=== PATIENT | female | born 2005 | race Caucasian/White ===

== ENCOUNTER 2025-07-28 19:34 | Emergency (ER) | payer MEDICARE, MEDICAID, SELFPAY ==
[2025-07-28 19:37] VITALS: BP 128/71; PULSE 79; RESP 18; TEMP 36.6; O2SAT 100
--- NOTE | 2025-07-28 22:33 | ED_ITS ---
HPI - General Adult General Chief complaint: Shortness of Breath/Dyspnea Stated complaint: trouble breathing Time Seen by Provider: 07/28/25 22:29 History of Present Illness HPI narrative: patient is 19-year-old female presents emergency department chief complaint needs a breathing. Patient is a inpatient over at the psychiatric facility chest not across the street patient was recently admitted there and normally uses a nebulizer her mother brought her equipment and brought her vials but did not bring the label for the facility was unable to use her on treatment for vials and reports that she was sent over to our facility to receive a breathing treatment Related Data Allergies Allergy/AdvReac Type Severity Reaction Status Date / Time No Known Allergies Allergy Verified 07/28/25 22:39 Review of Systems Review of Systems: A 10 system review of systems was completed on the patient and is negative except for what is stated in the HPI. Nursing and ancillary documentation was reviewed. Exam Narrative: GENERAL: Well-appearing, well-nourished, and in no acute distress. HEAD: Normocephalic, atraumatic. EYES: PERRLA and EOMI. ENT: Nares clear, no rhinorrhea or epistaxis. Mucous membranes moist. NECK: Supple. CHEST: Clear to auscultation. No respiratory distress. HEART: Regular rate and rhythm. No murmur heard. Normal peripheral pulses. ABDOMEN: Soft, nontender, nondistended, normal active bowel sounds. EXTREMITIES: Normal range of motion. No edema. SKIN: Warm, dry, no rash. NEURO: No focal deficits. Alert and oriented x3. PSYCH: Normal mood and affect. Course Vital Signs Vital signs: Vital Signs Temperature 36.6 C 07/28/25 19:37 Pulse Rate 79 07/28/25 19:37 Respiratory Rate 18 07/28/25 19:37 Blood Pressure 128/71 07/28/25 19:37 Pulse Oximetry 100 07/28/25 19:37 Oxygen Delivery Room Air 07/28/25 19:37 Temperature 36.6 C 07/28/25 19:37 Pulse Rate 79 07/28/25 19:37 Respiratory Rate 18 07/28/25 19:37 Blood Pressure 128/71 07/28/25 19:37 Pulse Oximetry 100 07/28/25 19:37 Oxygen Delivery Room Air 07/28/25 19:37 [facility] MDM Narrative Medical decision making narrative: the patient received DuoNeb in the emergency department and will be discharged back to the facility Differential Diagnosis Differential Diagnosis: Asthma, bronchospasm Discharge Plan Discharge Clinical Impression: Acute bronchospasm Patient Disposition: NH Alf/Asst Living Condition: Stable Instructions: Antibiotic Form, Asthma (ED) Patient Language: Frisian Prescriptions: New albuterol sulfate 1.25 mg/3 mL solution for nebulization 1.25 mg inhalation Q4H PRN (Reason: shortness of breath or wheezing) Qty: 90 0RF Follow-up/Referrals: PHYSICIAN NOT ON STAFF,NONSTAFF [Primary Care Provider] Time of Disposition: 22:45
[2025-07-28] MEDS: IPRATROPIUM 0.5 MG/ALBUTEROL SULFATE 2.5 MG (BASE) AMPUL.NEB 3 ML INHALATION (22:47)
[2025-07-28 22:50] VITALS: PULSE 67; RESP 18
[2025-07-28 22:56] VITALS: PULSE 70; RESP 18
--- OUTSIDE RECORDS SUMMARY | 2025-07-28 22:57 | XMS_ITS | Clinical Summary ---
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 Name Role Phone Provider, None Primary Care Provider Unavailabl e Allergies Active Allergy Reactions Criticality Noted Date Comments Diphenhydramine Anaphylaxis,Unknown High 11/01/2021 Stated by patient she is not sure when the reaction was Penicillins Hives 12/31/2021 Medications albuterol 108 (90 Base) MCG/ACT Aerosol Solution SHAKE WELL AND INHALE 2 PUFFS BY MOUTH DIRECTED NEEDED FOR WHEEZING AND SHORTNESS OF BREATH Active Dexmethylphenidate HCl 5 MG TabletIndications: Attention-deficit hyperactivity disorder, combined type TAKE ONE Tablet BY MOUTH AT EVERY DAY AT NOON 30 Tablet 4 Active Focalin XR 30 MG CAPSULE SR 24 HRIndications:Atte ntion-deficit hyperactivity disorder, combined type TAKE ONE CAPSULE BY MOUTH IN THE MORNING 30 Capsule 4 Active FLUoxetine (PROzac) 20 MG CapsuleIndications :Mood disorder Take 1 Capsule by mouth daily. 30 Capsule 3 5 Active lithium 300 MG Capsule Take 1 Capsule by mouth every morning. 90 Capsule 5 Active [place] Carbonate 600 MG Capsule Take 1 Capsule by mouth nightly. 90 Capsule 5 Active zolpidem (Ambien) 5 MG TabletIndications: Insomnia, unspecified type Take 1.5 Tablets by mouth nightly as needed for Sleep. 45 Tablet 3 5 Active cloNIDine (CATAPRES) 0.2 MG Tablet Take 1 Tablet by mouth nightly. 30 Tablet 3 5 Active Active Problems Problem Noted Date Diagnosed Date Other [facility] drug therapy Insomnia 08/26/2023 Borderline personality disorder 04/22/2023 Attention deficit hyperactivity disorder, combin ed type 03/11/2023 Mood disorder 03/11/2023 Social History Tobacco Use Types Packs/Day Years Used Date Smoking Tobacco: Never Smokeless Tobacco: Never Tobacco Cessation:Counseling Given: Not Answered Alcohol Use Standard Drinks/Week Comments Never 0 (1 standard drink = 0.6 oz pur e alcohol) [facility] [employer] Answer Date Recorded In the past 12 months has [employer], gas, oil, or water [employer] threatened to shut off services in your home? No 10/03/2024 Social Connection and Isolation Panel Answer Date Recorded In a typical week, how many times do you talk on the phone with family, friends, or neighbors? More than three times a week 10/03/2024 How often do you get togethe r with friends or relatives? Once a week 10/03/2024 How often do you attend [facility] or [facility] services? 1 to 4 times per year 10/03/2024 Do you belong to any clubs o r organizations such as evangelical groups, unions, fraternal or athletic groups, or school groups? No 10/03/2024 How often do you attend meet ings of the clubs or organizations you belong to? Never 10/03/2024 Are you , , di vorced, , never , or living with a partner? Never 10/03/2024 AUDIT-C Answer Date Recorded Q1: How often do you have a drink containing alcohol? Never 10/03/2024 Q2: How many drinks containi ng alcohol do you have on a typical day when you are drinking? Patient does not drink Q3: How often do you have si x or more drinks on one occasion? Never 10/03/2024 Overall Financial Resource Strain (CARDIA) Answe r Date Recorded How hard is it for you to pa y for the very basics like food, housing, medical care, and heating? Not hard at all 10/03/2024 PHQ-2 Answer Date Recorded Total Score - Questions 1-9 10 06/18 [facility] - Occupational Stress Questionnaire Answer Date Recorded Do you feel stress - tense, restless, nervous, or anxious, or unable to sleep at night because your mind is troubled all the time - these days? To some extent 10/03/2024 Exercise Vital Sign Answer Date Recorde d On average, how many days pe r week do you engage in moderate to strenuous exercise (like a brisk walk)? 7 days 10/03/2024 On average, how many minutes do you engage in exercise at this level? 40 min 10/03/2024 Hunger Vital Sign Answer Date Recorded Within the past 12 months, y ou worried that your food would run out before you got the money to buy more. Never true 10/03/19 25 Within the past 12 months, t he food you bought just didn't last and you didn't have money to get more. Never true 10/03/2024 PRAPARE - Transportation Answer Date Re corded In the past 12 months, has l ack of transportation kept you from medical appointments or from getting medications? No 09/18 In the past 12 months, has l ack of transportation kept you from meetings, work, or from getting things needed for daily living? No 10/03/2024 Housing Stability Vital Sign Answer Bradley e Recorded In the last 12 months, was t here a time when you were not able to pay the mortgage or rent on time? No 10/03/2024 In the past 12 months, how m any times have you moved where you were living? 0 10/03/2024 At any time in the past 12 m [facility], were you homeless or living in a care home (including now)? 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 DESIGNER Pulse 98 10/07/2024 9:45 AM LITHOGRAPH DESIGNER Temperature 36.7 C (98.1 F) 01/02/2022 5:51 PM CDT Respiratory Rate 18 10/07/2024 9:45 AM LITHOGRAPH DESIGNER Oxygen Saturation 95% 07/01/2024 4:19 PM LITHOGRAPH DESIGNER Inhaled Oxygen Concentration - - Weight 60.3 kg (133 lb) 10/07/2024 9:45 AM LITHOGRAPH DESIGNER Height 167.6 cm (5' 6) 10/07/2024 9:45 AM LITHOGRAPH DESIGNER Body Mass Index 21.47 10/07/2024 9:45 AM LITHOGRAPH DESIGNER Plan of Treatment Health Maintenance Due Date Last Done Comments Hepatitis C Virus (HCV) Screening 2003 Meningococcal B Immunization (2 of 2 - Bexsero SCDM 2-dose series) 06/22/2021 12/20/2020 Pap Smear 11/28/2024 Influenza Immunization (#1) 2025 110 12/2019, 05/21/2018, 10/24/2017, Additional history exists SARS-COV-2 Immunization ( season) 2025 11/01/2021, 06/18/2021, 05/18/2021, Additional history exists Respiratory Syncytial Virus (RSV) Immunization (Adult) (1 - 1-dose 75+ series) 11/28/2078 Hepatitis B Immunization Completed 004, 06/14/2004, 04/05/2004, Additional history exists Pneumococcal Immunization Combined Aged Out 2004, 2004, 06/14/2004, Additional history exists No longer eligible based on patient's age to complete this topic Varicella Immunization Completed 8, 01/21/2008, 06/24/2005 TdaP Immunization Completed 03/13/2015 Human Papillomavirus (HPV) Immunization Completed 08/03/2018, 04/11/2015, 03/13/2015, Additional history exists Meningococcal Immunization (ACWY) Completed 06/22/2020, 03/13/2015 Rotavirus Immunization Aged Out No lo nger eligible based on patient's age to complete this topic Insurance MEDICAID [employer] MEDICAID [employer] Care Teams Blasting Coal Miner Relationship Specialty Start Date End Date Provider, None [place] PCP - General 12/31/21
--- OUTSIDE RECORDS SUMMARY | 2025-07-28 22:57 | XMS_ITS | Encounter Summary ---
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 [employer] Name Role Phone Provider, None Primary Care Provider Unavailabl e Reason for Visit * Reason Comments Medication Refill Encounter Details Date Type Department Care Team (Late st Contact Info) Description 05/16/2024 Refill [facility] [address] [place] [phone] Neda Guerra, NURSE CARE MANAGER, WATER TENDER [address] [place] [phone] (Work) Medication Refill Social History Tobacco Use Types Packs/Day Years Used Date Smoking Tobacco: Never Assessed Comments Unknown Sex and Gender Information Value Date Recorded Sex Assigned at Female 11/25/2024 9:17 AM CDT Legal Sex Female 3:40 PM CDT Gender Identity Female 03/02/2024 12:09 AM CDT Sexual Orientation Bisexual 11/25/2024 9: 17 AM CDT documented as of this encounter Plan of Treatment Not on file documented as of this encounter Visit Diagnoses Diagnosis Mood disorder- Primary Unspecified episodic mood disorder Bipolar disorder, unspecified documented in this encounter Care Teams Opener Verifier [employer] Relationship Specialty Start Date End Date Provider, None [place] PCP - General 12/31/21 documented as of this encounter
--- OUTSIDE RECORDS SUMMARY | 2025-07-28 22:58 | XMS_ITS | Clinical Summary ---
Author Organization [facility] Address [address] [place] [id number] Care Team Providers Care Gravity Meter Observer Name Role Phone Yesi Delvalle PA-C Primary Care Provider [phone] Allergies Active Allergy Reactions Criticality Noted Date Comments Diphenhydramine Anaphylaxis,Other/Un known (See Comments) High 05/09/2022 Penicillins Hives,Other/Unknown (See Comments) 12/31/2021 Medications * This document contains information received from the source organization and may not represent a complete record from that organization. dexmethylpheni date (FOCALIN XR) 30 MG ER capsule Nightly 06/21/20 25 Active FLUoxetine (PROZAC) 40 MG capsule 1 capsule (40 mg) Nightly 07/13/20 25 Active lamoTRIgine (LAMICTAL ODT) 25 MG TBDP Take 1 tablet (25 mg) by mouth every morning Active QUEtiapine (SEROQUEL) 100 MG tablet Take 1.5 tablets (150 mg) by mouth daily Active cloNIDine (CATAPRES) 0.3 MG tablet Take 1 tablet (0.3 mg) by mouth daily Active cloNIDine (CATAPRES) 0.3 MG tablet Take 1 tablet (0.3 mg) by mouth at bedtime 06/07/20 23 025 Discontinued dexmethylpheni date (FOCALIN XR) 30 MG ER capsule Take 1 capsule (30 mg) by mouth 025 Discontinued dexmethylpheni date (FOCALIN) 5 MG tablet Take 1 tablet (5 mg) by mouth daily in the afternoon 05/21/20 025 Discontinued FLUoxetine (PROZAC) 20 MG capsule Take 1 capsule (20 mg) by mouth daily 06/07/20 025 Discontinued lithium 300 MG capsule Take 1 capsule (300 mg) by mouth every morning 025 Discontinued lithium 600 MG capsule Take 1 capsule (600 mg) by mouth at bedtime 06/07/20 025 Discontinued zolpidem (AMBIEN) 5 MG tablet Take 1.5 tablets (7.5 mg) by mouth at bedtime 03/23/20 025 Discontinued albuterol (PROVENTIL) (2.5 MG/3ML) 0.083% nebulizer solution Inhale 1 vial (2.5 mg) by mouth 4 times daily as needed 07/01/20 025 Discontinued(Er ror) azelastine (ASTELIN) 0.1 % nasal spray 1 spray by Nasal route 06/02/20 025 Discontinued(Er ror) LORazepam (ATIVAN) 1 MG tablet 0.5-1 tablet prior to procedure Orally 03/01/20 025 Discontinued(Er ror) BALZIVA 0.4-35 MG-MCG per tablet Take 1 tablet by mouth daily 03/15/20 025 Discontinued(Er ror) lithium 300 MG capsule Take 1 capsule (300 mg) by mouth every morning for 1 day 07/04/20 025 lithium 600 MG capsule Take 1 capsule (600 mg) by mouth at bedtime for 1 day 07/04/20 025 DAYVIGO 5 MG TABS tablet Nightly 07/13/20 25 025 Discontinued(Er ror) lithium 300 MG tablet Take 1 tablet (300 mg) by mouth 2 times daily 07/08/20 025 Discontinued(Er ror) Active Problems Problem Noted Date Diagnosed Date Acetaminophen toxicity, inte ntional self-harm, initial encounter 07/21/2025 Bipolar disorder in remission 06/07/2025 Mood disorder 05/16/2025 Borderline personality disorder 05/16/2025 Insomnia 08/26/2023 Abnormal serum thyroid stimulating hormone (TSH) level 09/29/2022 Leukocytosis 09/29/2022 Attention deficit hyperactiv ity disorder (ADHD), combined type 05/12/2019 Resolved Problems Problem Noted Date Diagnosed Date Resolved Date Suicidal deliberate poisonin g, initial encounter 07/03/2025 07/04/2025 Severe recurrent major depre ssion without psychotic features 05/16/2025 07/04/2025 Encounters * This document contains information received from the source organization and may not represent a complete record from that organization. Date Type Department Care Team Description 07/21/2025 4:42 PM DIP PAINTER - 07/23/2025 10:05 PM DIP PAINTER Hospital Encounter [facility]ensive [facility] [address] [place] [phone] Luis Manuel Shankar MD Hipskind, Timothy, MD Toxic effect of acetaminophen, intentional self-harm, initial encounter (HCC) (Primary Dx); Suicide attempt (HCC); Hypomagnesemia; Hypokalemia; Lactic acidosis Discharge Disposition: [facility] Hospital 07/14/2025 4:17 PM DIP PAINTER - 07/15/2025 1:41 AM DIP PAINTER Emergency [facility] Emergency Department [address] [place] [phone] Jessi Restrepo MD Suicidal ideation (Primary Dx) Discharge Disposition: [facility] Hospital 07/13/2025 5:45 PM DIP PAINTER Office Visit [address] [phone] Mylene Singh APRN Acute viral pharyngitis (Primary Dx); Sore throat 07/09/2025 7:21 PM DIP PAINTER - 07/10/2025 12:29 AM [facility] Emergency [facility] Emergency Department [address] [place] [phone] Casimiro Arzola MD Back pain, unspecified back location, unspecified back pain laterality, unspecified chronicity (Primary Dx) Discharge Disposition: Home 07/03/2025 12:26 PM DIP PAINTER - 07/04/2025 11:05 AM DIP PAINTER Hospital Encounter [facility] [address] [place] [phone] Jessi Restrepo MD Riley, Patrick L, MD Suicidal deliberate poisoning, initial encounter (HCC) (Primary Dx); Generalized anxiety disorder Discharge Disposition: Acute [facility] 06/22/2025 5:13 PM DIP PAINTER - 06/23/2025 2:06 AM DIP PAINTER Emergency [facility] Emergency [facility] [address] [place] [phone] Jake Ragland DO Suicidal ideation (Primary Dx); Depression, unspecified depression type Discharge Disposition: [facility] Hospital 06/07/2025 5:45 PM CDT Office Visit [facility] [place] [phone] Bronchitis (Primary Dx) 05/24/2025 3:46 PM CDT - 05/24/2025 11:22 PM CDT Emergency [facility] Emergency Department [address] [place] [phone] Philipp Bender MD Suicidal ideation (Primary Dx) Discharge Disposition: [facility] 05/23/2025 8:39 PM CDT - 05/23/2025 11:03 PM CDT Emergency [facility] Emergency Department [address] [place] [phone] Feliciano Spence MD Impairing emotional outbursts (Primary Dx) Discharge Disposition: Home 05/15/2025 9:24 PM CDT - 05/16/2025 9:41 AM CDT [facility] [address] [place] [phone] Pema Cardoza DO Mooth, David Carroll, MD Suicide attempt by acetaminophen overdose, initial encounter (HCC) (Primary Dx); Bipolar affective disorder, remission status unspecified (HCC) Discharge Disposition: [facility] Hospital from Last 3 Months Immunizations Immunization Administration Dates Next Due DTP Immunization, IM 06/14/2004,04/05/2004,01/25 DTaP 01/21/2008,06/24/2005 DTaP/Hep B/IPV 06/14/2004,04/05/2004,01/26/2004 HPV, 9-Valent 08/03/2018,04/11/2015 HPV, Quadrivalent 03/13/2015 Hepatitis A, Ped/Adol 2 dose 12/20/2020,06/22/20 Hepatitis B 06/14/2004,04/05/2004,01/26/2004 HiB 06/14/2004,04/05/2004,01/26/2004 Hpv, Unspecified Formulation 03/11/2015 IPV 01/21/2008 Influenza (nasal virus) 05/29/2011,06/06/2010 Influenza Quadrivalent, Pres ervative Free 06/22/2020,05/21/2018 Influenza, Quadrivalent 05/29/2011,06/06/2010, Influenza, Quadrivalent (CCIIV4) 06/14/2004 Influenza, Seasonal Vaccine 10/24/2017,1 ,06/06/2010,06/14 MMR 01/21/2008,2004 MMRV 01/21/2008 Meningococcal B, Omv 12/20/2020 Meningococcal Conjugate MCV4O (Menveo) 5 Meningococcal Conjugate MCV4 P (Menactra) 06/22/2020 Pneumococcal Conjugate PCV7 2004,1 ,04/05/2004,01/25 Pneumococcal Polysaccharide PPV23 2004,06/14/2004,04/05/2004,01/25 Polio, Unspecified Formulation 06/14/2004,2003,01/26/2004 Tdap 03/13/2015 Varicella (Chickenpox) 01/21/2008,06/24/2005 Family History Medical History Relation Name Comments Mental Illness Father Substance Abuse Father Mental Illness Mother Substance Abuse Mother Relation Name Status Comments Father Mother Social History Tobacco Use Types Packs/Day Years Used Date Smoking Tobacco: Never Smokeless Tobacco: Never Tobacco Cessation:Counseling Given: Not Answered Alcohol Use Standard Drinks/Week Comments Never 0 (1 standard drink = 0.6 oz pur e alcohol) PHQ-2 Answer Date Recorded PHQ-2 Score 0 07/13/2025 Housing Stability Vital Sign Answer Bradley e Recorded In the last 12 months, was t here a time when you were not able to pay the mortgage or rent on time? Patient declined 06/03/20 24 [address] of Places Lived in the Last Year Not on f ile 06/03/2024 Unstable Housing in the Last Year Not on file 06/03/2024 Humiliation, Afraid, Rape, and Kick questionnair e Answer Date Recorded Within the last year, have y ou been afraid of your partner or ex-partner? No 07/21/2025 Within the last year, have y ou been humiliated or emotionally abused in other ways by your partner or ex-partner? No Within the last year, have y ou been kicked, hit, slapped, or otherwise physically hurt by your partner or ex-partner? No 07/21/2025 Within the last year, have y ou been raped or forced to have any kind of sexual activity by your partner or ex-partner? No 07/21/2025 Hunger Vital Sign Answer Date Recorded Within the past 12 months, y ou worried that your food would run out before you got the money to buy more. Never true 07/22/20 25 Within the past 12 months, t he food you bought just didn't last and you didn't have money to get more. Never true 07/22/2025 PRAPARE - Transportation Answer Date Re corded In the past 12 months, has l ack of transportation kept you from medical appointments or from getting medications? No 12/2024 In the past 12 months, has l ack of transportation kept you from meetings, work, or from getting things needed for daily living? No 07/22/2025 Housing Stability Vital Sign Answer Bradley e Recorded In the last 12 months, was t here a time when you were not able to pay the mortgage or rent on time? No 07/22/2025 In the past 12 months, how m any times have you moved where you were living? 1 07/22/2025 At any time in the past 12 m [place], were you homeless or living in a half-way (including now)? No 07/22/2025 [facility] Utilities Answer Date Recorded In the past 12 months has th e electric, gas, oil, or water company threatened to shut off services in your home? No 07/22/2025 Alcohol Use Answer Date Recorded Frequency of Alcohol Consumption Not on file 05/15/2025 Average Number of Drinks Not on file 025 Frequency of Binge Drinking Not on file 04/19 Alcohol Use Status Never 05/15/2025 Average alcohol consumption Not on file 04/19 Comments No Sex and Gender Information Value Date Recorded Sex Assigned at Female 12/28/2024 8:34 AM CDT Legal Sex Female 11:12 PM CDT Gender Identity Female 12/28/2024 8:34 AM CDT Sexual Orientation Bisexual 12/28/2024 8: 34 AM CDT Last Filed Vital Signs Vital Sign Reading Time Taken Comments Blood Pressure 135/82 07/23/2025 6:00 PM DIP PAINTER Pulse 105 07/23/2025 6:00 PM DIP PAINTER Temperature 36.7 C (98.1 F) 07/23/2025 6:00 PM DIP PAINTER Respiratory Rate 16 07/23/2025 6:00 PM DIP PAINTER Oxygen Saturation 97% 07/23/2025 6:00 PM DIP PAINTER Inhaled Oxygen Concentration - - Weight 67.4 kg (148 lb 9.4 oz) 07/22/2025 1:01 A M DIP PAINTER Height 167.6 cm (5' 6) 07/22/2025 1:01 AM DIP PAINTER Body Mass Index 23.98 07/22/2025 1:01 AM DIP PAINTER Plan of Treatment Health Maintenance Due Date Last Done Comments HIV Screening 2003 Hepatitis C Screening ages 18 to 79 once 2003 Medicare Annual Wellness (AWV) 2003 Meningococcal B Vaccine (2 of 2 - Bexsero SCDM 2-dose series) 06/22/2021 12/20/2020 CERVICAL CANCER SCREENING 11/28/2024 ADULT TETANUS 03/13/2025 03/13/2015 DTaP/Tdap/Td Vaccines (7 - Td or Tdap) 03/13/2025 03/13/2015, 01/21/2008, 06/24/2005, Additional history exists Influenza Vaccine 03/18/2025 06/22/2020, , 10/24/2017, Additional history exists COVID-19 Immunization ( season) 2025 11/01/2021, 02/15/2021, 01/25/2021 Zoster Vaccine (Recombinant Vaccine) (1 of 2) 11/28/2053 HEPATITIS B VACCINES Completed 06/14/2004, 06/14/2004, 04/05/2004, Additional history exists HIB VACCINES Aged Out 06/14/2004, 03/18, 01/26/2004 No longer eligible based on patient's age to complete this topic Pneumococcal Vaccine: Peds to 50 & At-Risk Patients Aged Out 2004, 2004, 06/14/2004, Additional history exists No longer eligible based on patient's age to complete this topic IPV VACCINES Completed 01/21/2008, 05/19, 04/05/2004, Additional history exists MMR VACCINES Completed 01/21/2008, 12/2007, 2004 Varicella Vaccine Completed 01/21/2008, , 06/24/2005 HPV VACCINES Completed 08/03/2018, 03/19, 03/13/2015 MENINGOCOCCAL VACCINE Completed 06/22/2020, 015 HEPATITIS A VACCINES Completed 12/20/2020, 06/22/20 20 ROTAVIRUS VACCINES Aged Out No longer eligible based on patient's age to complete this topic Procedures Procedure Name Priority Date/Time Associated Diagnosis Comments BASIC METABOLIC PANEL (CHEM8) Timed 07/23/2025 11:31 AM DIP PAINTER COMPREHENSIVE METABOLIC PANEL Routine 07/23/2025 3:44 AM DIP PAINTER CBC W AUTO DIFF Routine 07/23/2025 3:44 AM DIP PAINTER ACETAMINOPHEN LEVEL Timed 07/22/2025 8 :58 PM DIP PAINTER PROTIME (PROTHROMBIN TIME) Timed 07/22/2025 8:58 PM DIP PAINTER APTT Timed 07/22/2025 8:58 PM DIP PAINTER COMPREHENSIVE METABOLIC PANEL Timed 07/22/2025 8:58 PM DIP PAINTER T3 FREE Routine 07/22/2025 2:28 PM DIP PAINTER TSH THIRD GENERATION Routine 07/22/2025 2:28 PM DIP PAINTER ACETAMINOPHEN LEVEL Timed 07/22/2025 4 :08 AM DIP PAINTER MAGNESIUM Routine 07/22/2025 4:08 AM DIP PAINTER HEPATIC (LIVER) FUNCTION PANEL Routine 07/22/2025 4:08 AM DIP PAINTER COMPREHENSIVE METABOLIC PANEL Routine 07/22/2025 4:08 AM DIP PAINTER CBC W AUTO DIFF Routine 07/22/2025 4:08 AM DIP PAINTER LACTIC ACID, SERUM STAT 07/22/2025 12 :08 AM DIP PAINTER LACTIC ACID, SERUM STAT 07/21/2025 9: 20 PM DIP PAINTER SALICYLATE LEVEL STAT 07/21/2025 8:34 PM DIP PAINTER ACETAMINOPHEN LEVEL STAT 07/21/2025 8 :34 PM DIP PAINTER COMPREHENSIVE METABOLIC PANEL STAT 07/21/2025 8:34 PM DIP PAINTER EKG STAT 07/21/2025 8:18 PM DIP PAINTER BLOOD GAS VENOUS STAT 07/21/2025 6:49 PM DIP PAINTER INFLUENZA A/B, RSV, COVID BY PCR STAT 07/21/2025 5:24 PM DIP PAINTER DRUG SCREEN MEDICAL STAT 07/21/2025 5 :21 PM DIP PAINTER URINALYSIS WITH REFLEX TO CULTURE, IF INDICATED STAT 07/21/2025 5:21 PM DIP PAINTER PATH REVIEW, SMEAR Routine 07/21/2025 4: 55 PM DIP PAINTER LACTIC ACID, SERUM STAT 07/21/2025 4: 55 PM DIP PAINTER HCG QUANTITATIVE STAT 07/21/2025 4:55 PM DIP PAINTER APTT STAT 07/21/2025 4:55 PM DIP PAINTER PROTIME (PROTHROMBIN TIME) STAT 07/21/2025 4:55 PM DIP PAINTER MAGNESIUM STAT 07/21/2025 4:55 PM DIP PAINTER SALICYLATE LEVEL STAT 07/21/2025 4:55 PM DIP PAINTER ALCOHOL SERUM MEDICAL STAT 07/21/2025 4:55 PM DIP PAINTER ACETAMINOPHEN LEVEL STAT 07/21/2025 4 :55 PM DIP PAINTER TSH THIRD GENERATION STAT 07/21/2025 4:55 PM DIP PAINTER T4 FREE STAT 07/21/2025 4:55 PM DIP PAINTER COMPREHENSIVE METABOLIC PANEL STAT 07/21/2025 4:55 PM DIP PAINTER CBC W AUTO DIFF STAT 07/21/2025 4:55 PM DIP PAINTER EKG STAT 07/21/2025 4:44 PM DIP PAINTER POCT URINE STAT 07/14/2025 4:57 PM DIP PAINTER URINALYSIS WITH REFLEX TO CULTURE, IF INDICATED STAT 07/14/2025 4:57 PM DIP PAINTER DRUG SCREEN MEDICAL STAT 07/14/2025 4 :57 PM DIP PAINTER INFLUENZA A/B, RSV, COVID BY PCR STAT 07/14/2025 4:57 PM DIP PAINTER T4 FREE STAT 07/14/2025 4:39 PM DIP PAINTER SALICYLATE LEVEL STAT 07/14/2025 4:39 PM DIP PAINTER ACETAMINOPHEN LEVEL STAT 07/14/2025 4 :39 PM DIP PAINTER ALCOHOL SERUM MEDICAL STAT 07/14/2025 4:39 PM DIP PAINTER TSH THIRD GENERATION STAT 07/14/2025 4:39 PM DIP PAINTER COMPREHENSIVE METABOLIC PANEL STAT 07/14/2025 4:39 PM DIP PAINTER CBC W AUTO DIFF STAT 07/14/2025 4:39 PM DIP PAINTER POCT INFLUENZA A/B Routine 07/13/2025 5: 59 PM DIP PAINTER Sore throat POCT COVID ANTIGEN HOME TEST (FLOWFLEX) Routine 07/13/2025 5:52 PM DIP PAINTER Sore throat POCT RAPID STREP A Routine 07/13/2025 5: 52 PM DIP PAINTER Sore throat CT ABDOMEN PELVIS W CONTRAST STAT 07/09/2025 9:21 PM DIP PAINTER POCT URINE STAT 07/09/2025 9:03 PM DIP PAINTER URINALYSIS WITH REFLEX TO CULTURE, IF INDICATED STAT 07/09/2025 8:22 PM DIP PAINTER COMPREHENSIVE METABOLIC PANEL STAT 07/09/2025 8:21 PM DIP PAINTER CBC W AUTO DIFF STAT 07/09/2025 8:21 PM DIP PAINTER LIPASE STAT 07/09/2025 8:21 PM DIP PAINTER AMYLASE STAT 07/09/2025 8:21 PM DIP PAINTER LITHIUM LEVEL Timed 07/03/2025 5:58 PM DIP PAINTER COMPREHENSIVE METABOLIC PANEL Timed 07/03/2025 5:58 PM DIP PAINTER MRSA BY PCR ([facility] ONLY) Routine 07/03/2025 4:42 PM DIP PAINTER LITHIUM LEVEL Timed 07/03/2025 4:11 PM DIP PAINTER COMPREHENSIVE METABOLIC PANEL Timed 07/03/2025 4:11 PM DIP PAINTER URINALYSIS WITH REFLEX TO CULTURE, IF INDICATED STAT 07/03/2025 2:49 PM DIP PAINTER DRUG SCREEN MEDICAL STAT 07/03/2025 2 :49 PM DIP PAINTER POCT URINE STAT 07/03/2025 2:30 PM DIP PAINTER XR ABDOMEN KUB STAT 07/03/2025 2:12 PM DIP PAINTER LITHIUM LEVEL STAT 07/03/2025 2:10 PM DIP PAINTER XR CHEST PORTABLE STAT 07/03/2025 12: 55 PM DIP PAINTER LIPASE STAT 07/03/2025 12:40 PM DIP PAINTER MAGNESIUM STAT 07/03/2025 12:40 PM DIP PAINTER ALCOHOL SERUM MEDICAL STAT 07/03/2025 12:40 PM DIP PAINTER ACETAMINOPHEN LEVEL STAT 07/03/2025 1 2:40 PM DIP PAINTER SALICYLATE LEVEL STAT 07/03/2025 12:4 0 PM DIP PAINTER TSH THIRD GENERATION STAT 07/03/2025 12:40 PM DIP PAINTER COMPREHENSIVE METABOLIC PANEL STAT 07/03/2025 12:40 PM DIP PAINTER CBC W AUTO DIFF STAT 07/03/2025 12:40 PM DIP PAINTER INFLUENZA A/B, RSV, COVID BY PCR STAT 07/03/2025 12:39 PM DIP PAINTER EKG STAT 07/03/2025 12:28 PM DIP PAINTER INFLUENZA A/B, RSV, COVID BY PCR STAT 06/22/2025 6:49 PM DIP PAINTER MAGNESIUM STAT 06/22/2025 6:01 PM DIP PAINTER SALICYLATE LEVEL STAT 06/22/2025 6:01 PM DIP PAINTER ALCOHOL SERUM MEDICAL STAT 06/22/2025 6:01 PM DIP PAINTER ACETAMINOPHEN LEVEL STAT 06/22/2025 6 :01 PM DIP PAINTER TSH THIRD GENERATION STAT 06/22/2025 6:01 PM DIP PAINTER T4 FREE STAT 06/22/2025 6:01 PM DIP PAINTER COMPREHENSIVE METABOLIC PANEL STAT 06/22/2025 6:01 PM DIP PAINTER CBC W AUTO DIFF STAT 06/22/2025 6:01 PM DIP PAINTER LITHIUM LEVEL STAT 06/22/2025 5:50 PM DIP PAINTER DRUG SCREEN MEDICAL STAT 06/22/2025 5 :33 PM DIP PAINTER URINALYSIS WITH REFLEX TO CULTURE, IF INDICATED STAT 06/22/2025 5:33 PM DIP PAINTER POCT URINE Routine 06/07/2025 6:15 PM CDT Bronchitis MAGNESIUM STAT 05/24/2025 4:01 PM CDT TEST, URINE STAT 05/24/2025 3:58 PM CDT URINALYSIS WITH REFLEX TO CULTURE, IF INDICATED STAT 05/24/2025 3:58 PM CDT DRUG SCREEN MEDICAL STAT 05/24/2025 3 :58 PM CDT T4 FREE STAT 05/24/2025 3:56 PM CDT SALICYLATE LEVEL STAT 05/24/2025 3:56 PM CDT ACETAMINOPHEN LEVEL STAT 05/24/2025 3 :56 PM CDT ALCOHOL SERUM MEDICAL STAT 05/24/2025 3:56 PM CDT TSH THIRD GENERATION STAT 05/24/2025 3:56 PM CDT COMPREHENSIVE METABOLIC PANEL STAT 05/24/2025 3:56 PM CDT CBC W AUTO DIFF STAT 05/24/2025 3:56 PM CDT INFLUENZA A/B, RSV, COVID BY PCR STAT 05/24/2025 3:56 PM CDT URINALYSIS WITH REFLEX TO CULTURE, IF INDICATED STAT 05/23/2025 9:22 PM CDT DRUG SCREEN MEDICAL STAT 05/23/2025 9 :22 PM CDT T4 FREE STAT 05/23/2025 9:18 PM CDT SALICYLATE LEVEL STAT 05/23/2025 9:18 PM CDT ACETAMINOPHEN LEVEL STAT 05/23/2025 9 :18 PM CDT ALCOHOL SERUM MEDICAL STAT 05/23/2025 9:18 PM CDT TSH THIRD GENERATION STAT 05/23/2025 9:18 PM CDT COMPREHENSIVE METABOLIC PANEL STAT 05/23/2025 9:18 PM CDT CBC W AUTO DIFF STAT 05/23/2025 9:18 PM CDT INFLUENZA A/B, RSV, COVID BY PCR STAT 05/23/2025 9:18 PM CDT LITHIUM LEVEL Routine 05/17/2025 5:01 AM CDT POCT URINE STAT 05/16/2025 2:26 AM CDT DRUG SCREEN MEDICAL STAT 05/16/2025 1 :20 AM CDT URINALYSIS WITH REFLEX TO CULTURE, IF INDICATED STAT 05/16/2025 1:20 AM CDT URINE CULTURE STAT 05/16/2025 1:20 AM CDT ACETAMINOPHEN LEVEL STAT 05/16/2025 1 2:45 AM CDT MAGNESIUM STAT 05/15/2025 9:56 PM CDT SALICYLATE LEVEL STAT 05/15/2025 9:56 PM CDT ALCOHOL SERUM MEDICAL STAT 05/15/2025 9:56 PM CDT ACETAMINOPHEN LEVEL STAT 05/15/2025 9 :56 PM CDT TSH THIRD GENERATION STAT 05/15/2025 9:56 PM CDT T4 FREE STAT 05/15/2025 9:56 PM CDT COMPREHENSIVE METABOLIC PANEL STAT 05/15/2025 9:56 PM CDT CBC W AUTO DIFF STAT 05/15/2025 9:56 PM CDT INFLUENZA A/B, RSV, COVID BY PCR STAT 05/15/2025 9:56 PM CDT EKG STAT 05/15/2025 9:34 PM CDT CARDIOLOGY 05/15/2025 9:24 PM CDT from Last 3 Months Results * (ABNORMAL) BASIC METABOLIC PANEL (CHEM8) (07/23/2025 11:31 AM DIP PAINTER) Glucose 123(H) 74 - 100 MG/DL [facility] Comment: (NOTE) Normal fasting blood glucose: 74-100 mg/dl The [place] [employer] recommends the following criteria for the diagnosis of diabetes 1. Symptoms of diabetes and a random glucose >= 200 mg/dL 2. Fasting glucose >= 126 mg/dL Impaired fasting glucose, a fasting glucose between 100 and 125 mg/dL is defined as a category at risk for future diabetes and cardiovacular disease. Blood Urea Nitrogen 3(L) 7 - 17 MG/DL [facility] Creatinine 0.5(L) 0.52 - 1.04 MG/DL [facility] Sodium 140 136 - 145 MMOL/L [facility] Potassium 3.7 3.5 - 5.1 MMOL/L [facility] Chloride 110(H) 98 - 107 MMOL/L [facility] Co2 22 22 - 30 MMOL/L [facility] Calcium 9.2 8.6 - 10.3 MG/DL [facility] Est GFR >90 >90 ML/MIN/1. 73sq.m [facility] GFR Comment Reported eGFR is based on the CKD-EPI 2020 equation that does not use a race coefficient. [facility] Comment: eGFR declines with age, even in people without kidney disease. SEE CHART BELOW FOR AVERAGE ESTIMATED eGFR BASED ON AGE. AGE(YEARS) AVERAGE ESTIMATED GFR <60 >90 60-69 85 >70 75 Anion Gap 12 10.0 - 22.0 MMOL/L [facility] Blood 07/23/2025 11:3 1 AM DIP PAINTER 07/23/2025 11:34 AM DIP PAINTER us Kathya Walker NP CHEMISTRY ORDERABLES Final Resul t [facility] [address] [place] [address], [facility] [phone] * (ABNORMAL) CBC W AUTO DIFF (07/23/2025 3:44 AM DIP PAINTER) Only the most recent of10 resultswithin the time period is included. White Blood Cell Count 6.6 4.8 - 10.8 THOUS/uL [facility] Red Blood Cell Count 3.73(L) 4.20 - 5.40 MIL/uL [facility] Hemoglobin 10.6(L) 12.0 - 16.0 GM/DL [facility] Hematocrit 32.1(L) 37.0 - 47.0 % [facility] Mean Corpuscular Volume 86.0 81 - 99 FL [facility] Mean Corpuscular Hemoglobin 28.5(L) 30.0 - 33.2 PG [facility] Mean Corpuscular Hemoglobin Conc 33.1 33.0 - 37.0 G/DL [facility] Rdwcv 12.9 11.5 - 14.5 % [facility] Platelet Count 255 130 - 400 THOUS/uL [facility] Mean Platelet Volume 8.6 7.4 - 10.4 FL [facility] Differential Type AUTO CR [facility] Neutrophils 55.3 37 - 77 % [facility] Lymphs 34.8 24 - 44 % [facility] Monocytes 8.7(H) 3.5 - 7.9 % [facility] Eos 0.6 0.0 - 6.0 % [facility] Basos 0.6 0.0 - 2.0 % [facility] Neutrophils Absolute Count 3.7 1.8 - 7.9 THOUS/uL [facility] Lymphocytes Absolute Count 2.3 1.1 - 4.2 THOUS/uL [facility] Monocytes Absolute Count 0.6 0.1 - 1.0 THOUS/uL [facility] Eosinophils Absolute Count 0.0 0.0 - 0.5 THOUS/uL [facility] Basophils Absolute Count 0.0 0.0 - 0.2 THOUS/uL [facility] Blood 07/23/2025 3:44 AM DIP PAINTER 07/23/2025 4:14 AM DIP PAINTER us Kathya Walker NP HEMATOLOGY ORDERABLES Final Resu lt [facility] [address] [place] [address], [facility] [phone] * (ABNORMAL) COMPREHENSIVE METABOLIC PANEL (07/23/2025 3:44 AM DIP PAINTER) Only the most recent of14 resultswithin the time period is included. Glucose 99 74 - 100 MG/DL [facility] Comment: (NOTE) Normal fasting blood glucose: 74-100 mg/dl The [place] [employer] recommends the following criteria for the diagnosis of diabetes 1. Symptoms of diabetes and a random glucose >= 200 mg/dL 2. Fasting glucose >= 126 mg/dL Impaired fasting glucose, a fasting glucose between 100 and 125 mg/dL is defined as a category at risk for future diabetes and cardiovacular disease. Blood Urea Nitrogen 3(L) 7 - 17 MG/DL [facility] [facility] Creatinine 0.4(L) 0.52 - 1.04 MG/DL [facility] Sodium 139 136 - 145 MMOL/L [facility] Potassium 2.9(LL) 3.5 - 5.1 MMOL/L [facility] Chloride 111(H) 98 - 107 MMOL/L [facility] Co2 24 22 - 30 MMOL/L [facility] Calcium 8.9 8.6 - 10.3 MG/DL [facility] Protein Total 5.5(L) 6.3 - 8.2 G/DL [facility] Comment: (NOTE) Plasma samples have a total protein concentration approximately 0.3 g/dL higher that serum due to the presence of fibrinogen. Albumin 3.1(L) 3.5 - 5.0 G/DL [facility] Globulin 2.4 1.4 - 4.8 [facility] Bilirubin, Total 0.4 0.2 - 1.3 MG/DL [facility] AST(SGOT) 16 14 - 36 U/L [facility] Alt (SGPT) 16 0 - 35 U/L [facility] Alkaline Phosphatase 53 38 - 126 U/L [facility] BUN/CREAT 7.5 7 - 25 [facility] Est GFR >90 >90 ML/MIN/1. 73sq.m [facility] GFR Comment Reported eGFR is based on the CKD-EPI 2020 equation that does not use a race coefficient. [facility] Comment: eGFR declines with age, even in people without kidney disease. SEE CHART BELOW FOR AVERAGE ESTIMATED eGFR BASED ON AGE. AGE(YEARS) AVERAGE ESTIMATED GFR <60 >90 60-69 85 >70 75 A/G Ratio 1.3 0.8 - 2.0 [facility] Anion Gap 7(L) 10.0 - 22.0 MMOL/L [facility] Blood 07/23/2025 3:44 AM DIP PAINTER 07/23/2025 4:14 AM DIP PAINTER Kathya Walker NP CHEMISTRY ORDERABLES Edited Resu lt - Final Performing Organization Address [facility]/ZIP Co de Phone Number [address] [phone] * APTT (07/22/2025 8:58 PM DIP PAINTER) Only the most recent of2 resultswithin the time period is included. APTT 23.1 21.2 - 32.8 SEC [facility] Blood 07/22/2025 8:58 PM DIP PAINTER 07/22/2025 9:02 PM DIP PAINTER us Abbe Alvarado MD HEMATOLOGY ORDERABLES Final Result Performing Organization Address [facility] Co de Phone Number [address] [phone] * (ABNORMAL) PROTIME (PROTHROMBIN TIME) (07/22/2025 8:58 PM DIP PAINTER) Only the most recent of2 resultswithin the time period is included. PROTIME 12.6(H) 9.1 - 11.9 SEC [facility] INR 1.2(H) 0.86 - 1.14 [facility] Comment: (NOTE) INR recommended therapeutic range:1.8-2.8 for less intense therapy. 2.3-3.3 more intense therapy. INR is valid for stabilized oral anticoagulant therapy.Reference Range for patients not on anticoagulation therapy 0.87-1.12 Blood 07/22/2025 8:58 PM DIP PAINTER 07/22/2025 9:02 PM DIP PAINTER Abbe Alvarado MD HEMATOLOGY ORDERABLES Final Result Performing Organization Address [facility] Phone Number [address] [phone] * (ABNORMAL) ACETAMINOPHEN LEVEL (07/22/2025 8:58 PM DIP PAINTER) Only the most recent of11 resultswithin the time period is included. Acetaminophen, S <10(L) 10 - 30 UG/ML [facility] Comment: (NOTE) -Acetaminophen- Therapeutic range: 10-30 ug/mL Possible toxicity: 150-200 ug/mL Probable toxicity: >200 ug/mL Blood 07/22/2025 8:58 PM DIP PAINTER 07/22/2025 9:02 PM DIP PAINTER us Abbe Alvarado MD CHEMISTRY ORDERABLES Final R esult Performing Organization Address [address] [phone] * TSH THIRD GENERATION (07/22/2025 2:28 PM DIP PAINTER) Only the most recent of8 resultswithin the time period is included. TSH High Sensitivity 1.45 0.465 - 4.68 uIU/ML [facility] Blood 07/22/2025 2:28 PM DIP PAINTER 07/22/2025 4:49 PM DIP PAINTER us Abbe Alvarado MD CHEMISTRY ORDERABLES Final R esult Performing Organization Address [facility] Phone [address] [address], [place] [phone] * T3 FREE (07/22/2025 2:28 PM DIP PAINTER) Pathologist [facility] Triiodothyronine (T3), Free 3.8 2.0 - 4.4 pg/mL [facility] Comment: (NOTE) Performed At: [address] [id number] Nehemias Hebert PhD Ph:[phone] Blood 07/22/2025 2:28 PM DIP PAINTER 07/22/2025 2:33 PM DIP PAINTER us Abbe Alvarado MD CHEMISTRY ORDERABLES Final R esult [address] [phone] * MAGNESIUM (07/22/2025 4:08 AM DIP PAINTER) Only the most recent of6 resultswithin the time period is included. Pathologist [facility] Magnesium 1.9 1.6 - 2.3 MG/DL [facility] Blood 07/22/2025 4:08 AM DIP PAINTER 07/22/2025 4:19 AM DIP PAINTER us Kathya Walker NP CHEMISTRY ORDERABLES Final Resul t [address] [phone] * HEPATIC (LIVER) FUNCTION PANEL (07/22/2025 4:08 AM DIP PAINTER) Pathologist [facility] Liver Total Protein 6.3 6.3 - 8.2 G/DL [facility] Comment: (NOTE) Plasma samples have a total protein concentration approximately 0.3 g/dL higher that serum due to the presence of fibrinogen. Liver Albumin 3.6 3.3 - 5.0 G/DL [facility] Liver A/G Ratio 1.3 0.8 - 2.0 [facility] Bilirubin, Total 0.5 0.2 - 1.3 MG/DL [facility] AST(SGOT) 23 14 - 36 U/L [facility] ALKP 49 38 - 126 U/L [facility] Alt (SGPT) 23 0 - 35 U/L [facility] Bilirubin, Indirect 0.3 0.0 - 1.1 MG/DL [facility] Bilirubin Direct 0.0 0.0 - 0.3 MG/DL [facility] Blood 07/22/2025 4:08 AM DIP PAINTER 07/22/2025 4:19 AM DIP PAINTER Kathya Walker NP CHEMISTRY ORDERABLES Final Resul t Performing Organization Address [facility] Co de Phone Number [address] [phone] * LACTIC ACID, SERUM (07/22/2025 12:08 AM DIP PAINTER) Only the most recent of3 resultswithin the time period is included. Lactate 1.2 0.7 - 2.0 MMOL/L [facility] Blood (BLOOD) 07/22/2025 12: 08 AM DIP PAINTER 07/22/2025 12:14 AM DIP PAINTER Luis Manuel Shankar MD CHEMISTRY ORDERABLES Final Resul t Performing Organization Address [facility] de Phone Number [address] [phone] * SALICYLATE LEVEL (07/21/2025 8:34 PM DIP PAINTER) Only the most recent of8 resultswithin the time period is included. Salicylate Level <1.0 0 - 20 MG/DL [facility] Comment: (NOTE) Therapeutic: 1.0-20.0 mg/dL Toxic: >30 mg/dL [place]eth[place]: >60 mg/dL Blood 07/21/2025 8:34 PM DIP PAINTER 07/21/2025 8:37 PM DIP PAINTER us Luis Manuel Shankar MD CHEMISTRY ORDERABLES Final Resul t [address] [phone] * EKG (07/21/2025 8:18 PM DIP PAINTER) Only the most recent of4 resultswithin the time period is included. Q-T Interval 376 ms RAD/CARD 07/21/2025 8:17 PM DIP PAINTER Narrative RAD/CARD - 07/21/2025 8:35 PM DIP PAINTER Ventricular Rate : 102 BPM Atrial Rate : 102 BPM P-R Interval : 148 ms QRS Duration : 82 ms Q-T Interval : 376 ms QTC Calculation(Bazett) : 490 ms Calculated P [place] : 45 degrees Calculated R [place] : 7 degrees T [place] : 38 degrees Diagnosis : See ED chart/note for EKG interpretation Procedure Note Luis Manuel Shankar MD - 07/21/2025 Ventricular Rate : 102 BPM Atrial Rate : 102 BPM P-R Interval : 148 ms QRS Duration : 82 ms Q-T Interval : 376 ms QTC Calculation(Bazett) : 490 ms Calculated P [place] : 45 degrees Calculated R [place] : 7 degrees T [place] : 38 degrees Diagnosis : See ED chart/note for EKG interpretation us Luis Manuel Shankar MD ECG ORDERABLES Final Result RAD/CARD * (ABNORMAL) BLOOD GAS VENOUS (07/21/2025 6:49 PM DIP PAINTER) pH Venous 7.35 7.31 - 7.41 [facility] pCO2 Venous 34.4(L) 40 - 50 MMHG [facility] PO2 Venous 38.3 35.0 - 45.0 MMHG [facility] HCO3, Venous 18.7(L) 22.0 - 26.0 MMHG [facility] Blood VENOUS BLOOD SPECIMEN / Unknown 07/21/2025 6:49 PM DIP PAINTER 07/21/2025 6:50 PM DIP PAINTER Luis Manuel Shankar MD CHEMISTRY ORDERABLES Final Resul t Performing Organization Address [facility]/ZIP Co de Phone Number [address] [phone] * INFLUENZA A/B, RSV, COVID BY PCR (07/21/2025 5:24 PM DIP PAINTER) Only the most recent of7 resultswithin the time period is included. Pathologist [facility] SARS-COV-2 Source NASOPHARYNGEAL [facility] Influenza A Not Detected Not Detected [facility] Influenza B Not Detected Not Detected [facility] RSV Not Detected Not Detected [facility] SARS-COV-2 By PCR Not Detected Not Detected [facility] Comment (NOTE) [facility] Comment: Results should be used in conjunction with clinical findings and should not form the sole basis for a diagnosis or treatment decision. Method CRS Cepheid [facility] Nasopharyngeal SPECIMEN FROM NASOPHARYNGEAL STRUCTURE / Unknown 07/21/2025 5:24 PM DIP PAINTER 07/21/2025 5:31 PM DIP PAINTER Luis Manuel Shankar MD MICROBIOLOGY - GENERAL ORDERABLE S Final Result Performing Organization Address [facility] Co de Phone Number [address] [phone] * (ABNORMAL) DRUG SCREEN MEDICAL (07/21/2025 5:21 PM DIP PAINTER) Only the most recent of7 resultswithin the time period is included. [facility] Phencyclidine Screen Urine NEGATIVE NEGATIVE [facility] OXYCODONE SCRN UR NEGATIVE NEGATIVE CR [facility] Opiate Screen, Urine NEGATIVE NEGATIVE [facility] Methadone Screen, Urine NEGATIVE NEGATIVE [facility] Methamphetamine, UR NEGATIVE NEGATIVE [facility] Tricyclic Screen POSITIVE(A) NEGATIVE C [facility] THC NEGATIVE NEGATIVE [facility] Benzodiazepine Screen, Urine POSITIVE(A) NEGATIVE [facility] Barbiturate Screen, Urine NEGATIVE NEGATIVE [facility] Amphetamines Screen, Urine NEGATIVE NEGATIVE [facility] Cocaine Metabolites Urine NEGATIVE NEGATIVE [facility] USDS Cut-offs --CUTOFF VALUES FOR THE DRUGS OF ABUSE ARE:-- [facility] Comment: Amphetamine: 500 ng/ml Barbituates: 200 ng/ml Benzodiazepines: 150 ng/ml Buprenorphine: 10 ng/ml Cocaine: 150ng/ml Methamphetamine: 500ng/ml Opiates (Morphine): 100ng/ml Oxycodone: 100 ng/ml PCP (Phencyclidine):25 ng/ml PPX (Propoxyphene): 300 ng/ml TCA: 300 ng/ml THC: 50 ng/ml Methadone: 200 ng/mL [facility] DRUGS OF ABUSE PANEL IS A SCREENING TEST ONLY. IF CONFIRMATION TESTING IS NEEDED PLEASE NOTIFY THE LAB. Urine 07/21/2025 5:21 PM DIP PAINTER 07/21/2025 5:22 PM DIP PAINTER us Luis Manuel Shankar MD URINE ORDERABLES Final Result [address] [phone] * (ABNORMAL) URINALYSIS WITH REFLEX TO CULTURE, IF INDICATED (07/21/2025 5:21 PM DIP PAINTER) Only the most recent of8 resultswithin the time period is included. Glucose UA 50(A) NORMAL MG/DL [facility] Protein UA 15(A) NEGATIVE MG/DL [facility] Bilirubin UA NEGATIVE NEGATIVE [facility] Urobilinogen UA NORMAL <2 MG/DL [facility] pH, Urine 6.5 5.0 - 8.0 [facility] Blood UA NEGATIVE NEGATIVE [facility] Ketones UA 5(A) NEGATIVE MG/DL [facility] Nitrite UA NEGATIVE NEGATIVE [facility] Leukocyte Esterase UA NEGATIVE NEGATIVE [facility] UR Appearance CLEAR CLEAR [facility] Specific [place] UA 1.015 1.015 - 1.025 [facility] Color YELLOW YELLOW [facility] Site CCMS [facility] Microscopic Performed PERFORMED [facility] Squamous Epithelial 5-10 <5 /HPF [facility] Mucus TRACE /LPF [facility] Urine URINE SPECIMEN COLLECTION, CLEAN CATCH / Unknown 07/21/2025 5:21 PM DIP PAINTER 07/21/2025 5:22 PM DIP PAINTER Luis Manuel Shankar MD URINE ORDERABLES Final Result Performing Organization Address [facility] Co de Phone Number [address] [phone] * ALCOHOL SERUM MEDICAL (07/21/2025 4:55 PM DIP PAINTER) Only the most recent of7 resultswithin the time period is included. Alcohol Serum <10 0 - 10 MG/DL [facility] Comment: (NOTE) FOR MEDICAL PURPOSES ONLY: NEGATIVE: <10 mg/dL TOXIC: 50-100 mg/dL DEPRESSION of JUNIOR ESTIMATOR: >100 mg/dL FATALITIES REPORTED (CRITICAL): >400 mg/dL Blood (BLOOD) 07/21/2025 4:5 5 PM DIP PAINTER 07/21/2025 5:02 PM DIP PAINTER Luis Manuel Shankar MD CHEMISTRY ORDERABLES Final Resul t Performing Organization Address City/[facility]/[place] [address], [facility] [phone] * PATH REVIEW, SMEAR (07/21/2025 4:55 PM DIP PAINTER) Smear PATHOLOGIST COMMENTS: Mild leukocytosis with absolute lymphocytosis and monocytosis. Correlation with the clinical picture is suggested. If persistent or progressive, flow cytometry studies can be performed. Performed by Avani Marin MD on 07/22/2025 at [facility] [address] [place] [address] [facility] 07/21/2025 4:55 PM DIP PAINTER 07/21/2025 5:42 PM DIP PAINTER us Luis Manuel Shankar MD PATHOLOGY/CYTOLOGY ORDERABLES Fi nal Result [address] [address] [phone] * HCG QUANTITATIVE (07/21/2025 4:55 PM DIP PAINTER) Gonadotropin, Chorionic (HCG) Quant <2 mIU/ML [facility] Comment: (NOTE) CONCENTRATIONS OF HCG MEASURED IN SAMPLES FROM APPARENTLY HEALTHY, NON- INDIVDUALS WERE DETERMINED TO BE <4.84mIU/mL (290 SAMPLES) SAMPLE TYPE # OF MEAN MIN MAX 2.5th 97.5th SAMPLES PERCENTILE PERCENTILE NORMAL MALE 98 0.02 0.00 1.06 0.00 0.08 NORMAL FEMALE 123 0.46 0.00 5.42 0.00 4.32 POST MENOPAUSAL 69 1.52 0.00 6.66 0.00 6.46 TOTAL 290 0.56 0.00 6.66 0.00 4.83 CONCENTRATIONS OF HCG MEASURED IN THE SERA OF FEMALES AT DEFINED GESTATIONAL AGES ARE SUMMARIZED BELOW. SAMPLE TYPE # OF MEAN MIN MAX 2.5th 97.5th SAMPLES PERCENTILE PERCENTILE GEST. AGE 1-10 WEEKS 112 31,142 44.71 256,740 63.7 150,854 GEST. AGE 11-15 WEEKS 43 55,425 11,556 265,380 73053 151,996 GEST. AGE 16-22 WEEKS 50 27,023 7480.8 11,954 9383.8 61,410 GEST. AGE 23-40 WEEKS 45 24,031 1531.1 101,566 1737.2 98,576 INTERPRETATION OF RESULTS: ACCORDING TO ZAHIRA JOYA. CLINICAL GUIDE TO LABORATORY TESTS, 3RD ED. HCG RESULTS >24 mIU/mL ARE CONSIDERED POSITIVE. Blood (BLOOD) 07/21/2025 4:5 5 PM DIP PAINTER 07/21/2025 5:02 PM DIP PAINTER Luis Manuel Shankar MD CHEMISTRY ORDERABLES Final Resul t Performing Organization Address City/[facility]/ZIP Co de Phone Number [address] [phone] * T4 FREE (07/21/2025 4:55 PM DIP PAINTER) Only the most recent of6 resultswithin the time period is included. Free T4 1.19 0.79 - 2.35 NG/DL [facility] Blood (BLOOD) 07/21/2025 4:5 5 PM DIP PAINTER 07/21/2025 5:02 PM DIP PAINTER Result [facility] Luis Manuel Shankar MD CHEMISTRY ORDERABLES Final Resul t Performing Organization Address [facility] Co de Phone Number [address] [phone] * POCT URINE (07/14/2025 4:57 PM DIP PAINTER) Only the most recent of5 resultswithin the time period is included. Test Urine Negative Negative Kit Lot# [id number] Kit Exp Date 11/11/2026 07/14/2025 4:57 PM DIP PAINTER Jessi Restrepo MD POINT OF CARE TEST ORDERABLES Final Result * POCT INFLUENZA A/B (07/13/2025 5:59 PM DIP PAINTER) Influenza A Ab neg [facility] Influenza B Ab neg [facility] 07/13/2025 5:59 PM DIP PAINTER Mylene Singh APRN POINT OF CARE TEST ORDERABLES Final Result Performing Organization Address City/[facility] Co de Phone Number [facility] [address] [place] [phone], [facility] * POCT COVID ANTIGEN HOME TEST (FLOWFLEX) (07/13/2025 5:52 PM DIP PAINTER) SARS-COV-2 AG RAPID Not Detected Not Detected, Invalid Result [facility] NARES ANTERIOR NARES SWAB / Unknown 07/13/2025 5:52 PM DIP PAINTER us Mylene Singh ROUTE AIDE POINT OF CARE TEST ORDERABLES Final Result Performing Organization Address [facility] de Phone Number [facility] [address] [place] [address] * POCT RAPID STREP A (07/13/2025 5:52 PM DIP PAINTER) Strep Screen neg [facility] 07/13/2025 5:52 PM DIP PAINTER us Mylene Singh ROUTE AIDE POINT OF CARE TEST ORDERABLES Final Result Performing Organization Address [facility] de Phone Number [facility] [address] [place] [address] * CT ABDOMEN PELVIS W CONTRAST (07/09/2025 9:21 PM DIP PAINTER) Anatomical Region Laterality Modality Abdomen Computed Tomogra phy 07/09/2025 8:51 PM DIP PAINTER Impressions 07/09/2025 9:33 PM DIP PAINTER IMPRESSION: No acute abnormality. INCIDENTAL FINDINGS: None requiring follow-up. Electronically signed by: Abbe Paredes MD 07/09/2025 09:33 PM DIP PAINTER RP Narrative 07/09/2025 9:33 PM DIP PAINTER EXAM: CT Abdomen and Pelvis with contrast INDICATION: abdominal pain TECHNIQUE: Helical CT of the abdomen and pelvis was obtained from the diaphragm through the ischial tuberosities using contrast. Axial, coronal and sagittal images were obtained. Dose reduction techniques were used including automated exposure control and/or adjustment of the mA and/or kV according to patient size. COMPARISON: FINDINGS: LUNG BASES: No significant abnormality. LIVER: No significant abnormality. BILIARY: No significant abnormality. PANCREAS: No significant abnormality. SPLEEN: No significant abnormality. ADRENAL GLANDS: No significant abnormality. KIDNEYS/BLADDER: No significant abnormality. STOMACH/DUODENUM: No significant abnormality. GI TRACT: No bowel obstruction. The appendix is normal. Mild diffuse increased colonic stool volume. VESSELS: Nonaneurysmal abdominal aorta. LYMPH NODES: No enlarged abdominal or pelvic lymph nodes. OTHER PELVIC: No free pelvic fluid. OTHER: No pneumoperitoneum. ABDOMINAL WALL: No significant abnormality. BONES/SPINE: No acute abnormality. Procedure Note Abbe Paredes MD - 07/09/2025 EXAM: CT Abdomen and Pelvis with contrast INDICATION: abdominal pain TECHNIQUE: Helical CT of the abdomen and pelvis was obtained from thediaphragm through the ischial tuberosities using contrast. Axial, coronal and sagittal imageswere obtained. Dose reduction techniques were used including automated exposure controland/or adjustment of the mA and/or kV according to patient size. COMPARISON: FINDINGS: LUNG BASES: No significant abnormality. LIVER: No significant abnormality. BILIARY: No significant abnormality. PANCREAS: No significant abnormality. SPLEEN: No significant abnormality. ADRENAL GLANDS: No significant abnormality. KIDNEYS/BLADDER: No significant abnormality. STOMACH/DUODENUM: No significant abnormality. GI TRACT: No bowel obstruction. The appendix is normal. Mild diffuseincreased colonic stool volume. VESSELS: Nonaneurysmal abdominal aorta. LYMPH NODES: No enlarged abdominal or pelvic lymph nodes. OTHER PELVIC: No free pelvic fluid. OTHER: No pneumoperitoneum. ABDOMINAL WALL: No significant abnormality. BONES/SPINE: No acute abnormality. IMPRESSION: No acute abnormality. INCIDENTAL FINDINGS: None requiring follow-up. Electronically signed by: Abbe Paredes MD 07/09/2025 09:33 PM DIP PAINTER RPWorkstation: [id number] Casimiro Arzola MD [facility] CT ORDERABLES Final Result * LIPASE (07/09/2025 8:21 PM DIP PAINTER) Only the most recent of2 resultswithin the time period is included. Lipase 56 23 - 300 U/L [facility] Blood (BLOOD) 07/09/2025 8:2 1 PM DIP PAINTER 07/09/2025 8:26 PM DIP PAINTER Casimiro Arzola MD CHEMISTRY ORDERABLES Final Result Performing Organization Address [facility]/ZIP Co de Phone Number [address] [phone] * AMYLASE (07/09/2025 8:21 PM DIP PAINTER) Amylase 77 30 - 130 U/L [facility] Blood (BLOOD) 07/09/2025 8:2 1 PM DIP PAINTER 07/09/2025 8:26 PM DIP PAINTER Casimiro Arzola MD CHEMISTRY ORDERABLES Final Result Performing Organization Address [facility] Co de Phone Number [address] [phone] * LITHIUM LEVEL (07/03/2025 5:58 PM DIP PAINTER) Only the most recent of5 resultswithin the time period is included. Pathologist [facility] [place] Level SEE SCANNED REPORT 0.6 - 1.2 MEQ/L [facility] Blood (BLOOD) 07/03/2025 5:5 8 PM DIP PAINTER 07/03/2025 6:00 PM DIP PAINTER Elton Rowe MD CHEMISTRY ORDERABLES Final Re sult Performing Organization Address [facility] Co de Phone Number [address] [phone] * MRSA BY PCR (NARES ONLY) (07/03/2025 4:42 PM DIP PAINTER) Source-MRSA [facility] MRSA Not Detected Not Detected [facility] Comment MRSA DNA IS NOT DETECTED, PRESUMED NOT COLONIZED WITH MRSA. [facility] NARES ANTERIOR NARES SWAB / Unknown 07/03/2025 4:42 PM DIP PAINTER 07/03/2025 4:45 PM DIP PAINTER Elton Rowe MD MICROBIOLOGY - GENERAL ORDERA BLES Edited [place] [address], [facility] [phone] * XR ABDOMEN KUB (07/03/2025 2:12 PM DIP PAINTER) Anatomical Region Laterality Modality Abdomen Computed Radiogr aphy 07/03/2025 7:58 PM DIP PAINTER Impressions 07/03/2025 3:14 PM DIP PAINTER IMPRESSION: Nasogastric tube as above Electronically signed by: Arpan Lazo MD 07/03/2025 03:14 PM DIP PAINTER RP Narrative 07/03/2025 3:14 PM DIP PAINTER 1 VIEW ABDOMEN CLINICAL HISTORY: Nasogastric tube placement. COMPARISON: None. FINDINGS: Single portable view of the abdomen obtained for nasogastric tube placement. The nasogastric tube terminates just beneath the lateral margin of the left diaphragm in the region of the proximal stomach. Procedure Note Arpan Lazo MD - 07/03/2025 1 VIEW ABDOMEN CLINICAL HISTORY: Nasogastric tube placement. COMPARISON: None. FINDINGS: Single portable view of the abdomen obtained for nasogastrictube placement. The nasogastric tube terminates just beneath the lateral margin of the leftdiaphragm in the region of the proximal stomach. IMPRESSION: Nasogastric tube as above Electronically signed by: Arpan Lazo MD 07/03/2025 03:14 PM DIP PAINTER RPWorkstation: [id number] us Jessi Restrepo MD [facility] IMG DIAG ORDERABLES Final Result * XR CHEST PORTABLE (07/03/2025 12:55 PM DIP PAINTER) Anatomical Region Laterality Modality Chest Computed Radiogr aphy 07/03/2025 6:41 PM DIP PAINTER Impressions 07/03/2025 2:27 PM DIP PAINTER Impression: Normal. No change. Electronically signed by: Jerod Smith MD 07/03/2025 02:27 PM DIP PAINTER RP Narrative 07/03/2025 2:27 PM DIP PAINTER PROCEDURE: XR CHEST 1 VIEW dated 07/03/2025 12:55 PM DIP PAINTER CLINICAL HISTORY: Female 19 years of age. over dose COMPARISON: 08/06/2023. Findings: Limited evaluation of the thoracic spine and chest wall is normal. The heart and mediastinum are normal for AP technique. The pulmonary vasculature is normal caliber and well-defined. Pulmonary aeration and architecture is normal. There are no focal airspace opacities. The pleural surfaces are unremarkable. Procedure Note Jerod Smith MD - 07/03/2025 PROCEDURE: XR CHEST 1 VIEW dated 07/03/2025 12:55 PM DIP PAINTER CLINICAL HISTORY: Female 19 years of age. over dose COMPARISON: 08/06/2023. Findings: Limited evaluation of the thoracic spine and chest wall is normal. The heart and mediastinum are normal for AP technique. The pulmonary vasculature is normal caliber and well-defined. Pulmonary aeration and architecture is normal. There are no focal airspaceopacities. The pleural surfaces are unremarkable. Impression: Normal. No change. Electronically signed by: Jerod Smith MD 07/03/2025 02:27 PM DIP PAINTER RPWorkstation: [id number] Jessi Restrepo MD [facility] IMG DIAG ORDERABLES Final Result * TEST, URINE (05/24/2025 3:58 PM CDT) Test Urine NEGATIVE NEGATIVE [facility] Urine specimen (specimen) 05/24/2025 3:58 PM CDT 05/24/2025 4:02 PM CDT Philipp Bender MD URINE ORDERABLES Final Re sult [address] [address], [facility] [phone] * URINE CULTURE (05/16/2025 1:20 AM CDT) Specimen Type URINE [facility] Special Handling NONE Reflexed from [id number] [facility] Culture Result 1000 TO 10,000 COL/ML NORMAL UROGENITAL NATASHA [facility] Status 05/18/2025 FINAL [facility] URINE SPECIMEN / Unknown 05/16/2025 1:20 AM CDT 05/16/2025 1:29 AM CDT us Pema Cardoza DO URINE ORDERABLES Final Resul t [facility] [address] [place] [address], [facility] [phone] [address], [facility] [phone] * CARDIOLOGY (05/15/2025 9:24 PM CDT) Anatomical Region Laterality Modality Other us Philipp Bender MD TRANSCRIPTIONS Final Res ult from Last 3 Months Insurance [address] [place] [address] [place] [facility] MEDICARE [facility] Advance Directives * Full Code (Latest Code Status on File) Date Activated Date Inactivated Comments 07/22/2025 3:56 AM 07/24/2025 12:51 AM * Full Code Date Activated Date Inactivated Comments 07/03/2025 4:26 PM 07/04/2025 1:22 PM * Full Code Date Activated Date Inactivated Comments 05/16/2025 11:31 AM 05/19/2025 8:35 PM Care Teams Gravity Meter Observer Relationship Specialty Start Date End Date Yesi Delvalle PA-C [address] [place] [address] PCP - General Physician Web Site Project Manager 06/03/24
--- OUTSIDE RECORDS SUMMARY | 2025-07-28 22:58 | XMS_ITS | Patient Health Record ---
Author Organization [facility] Address [address] [address] Care Team Providers Care Church Official Name Role Phone Neda Guerra Primary Care Provider Allergies Allergen (clinical drug ingredient) Drug/Non Drug Allergy documented on EMR Reaction Allergy Type Onset Date Status diphenhydramine Benadryl anaphylaxis Drug Allergy Active amoxicillin Amoxicillin Unknown Drug Allergy Act yobani Results Component Value Reference Range Notes TSH W/REFLEX TO FT4 Reviewed date:05/03/2025 01:35:54 PM Interpretation: Performing Lab: Notes/Report: LITHIUM Reviewed date:05/03/2025 01:31:02 PM Interpretation: Performing Lab: Notes/Report: LITHIUM 0.7 COMPREHENSIVE METABOLIC PANE L (CMP) Reviewed date:05/03/2025 01:31:58 PM Interpretation: Performing Lab: Notes/Report: Reason For Referral No Information Medications Medication SIG (Take, Route, Frequency, Duration) Notes Start Date End Date Status cloNIDine HCl 0.3 MG Tablet 1 tablet Orally at bedtime; Duration: 30 days Active SEROquel 50 MG Tablet 1 tablet at bedtime Orally Once a day; Duration: 30 days take with 100 mg 07/20/2025 Active FLUoxetine HCl 40 MG Capsule 1 capsule Orally Once a day; Duration: 30 days 07/13/2025 Active DayVigo 5 MG Tablet 1 tablet at bedtime Orally Once a day; Duration: 30 days 07/13/2025 Not-Taking Darling Carbonate 600 MG Capsule 1 capsule at bedtime Orally Once a day; Duration: 30 days 06/21/2025 Not-Taking Zolpidem Tartrate 10 MG Tablet 0.5 tablet at bedtime as needed Orally Once a day; Duration: 30 days 06/21/2025 Not-Taking Focalin XR 30 MG Capsule Extended Release 24 Hour 1 capsule in the morning Orally Once a day; Duration: 30 days thirty 08/27/2025 Active Focalin XR 30 MG Capsule Extended Release 24 Hour 1 capsule in the morning Orally Once a day; Duration: 30 days thirty 09/24/2025 Active Darling Carbonate 300 MG Capsule 1 capsule in am Orally twice a day; Duration: 30 days 07/13/2025 Not-Taking Focalin XR 30 MG Capsule Extended Release 24 Hour 1 capsule in the morning Orally Once a day; Duration: 30 days thirty 07/30/2025 Active Dexmethylphenidate HCl 5 MG Tablet 1 tablet Orally daily; Duration: 30 days thirty 07/19/2025 Not-Taking LORazepam 1 MG Tablet 0.5-1 tablet prior to procedure Orally 03/01/2025 Not-Taking Ambien 5 MG Tablet 1.5 at night Orally Once a day Not-Taking Dexmethylphenidate HCl 5 MG Tablet 1 tablet Orally daily; Duration: 30 days thirty 08/16/2025 Not-Taking LaMICtal 25 MG Tablet 1 tablet Orally bid; Duration: 30 days Start taking bid on Jul 29. Active Dexmethylphenidate HCl 5 MG Tablet 1 tablet Orally daily; Duration: 30 days thirty 06/21/2025 Not-Taking Zolpidem Tartrate 5 MG Tablet 0.5 Orally Once a day; Duration: 30 days As needed 06/21/2025 Not-Taking SEROquel 100 MG Tablet 1 tablet Orally bedtime; Duration: 30 days Active Balziva 0.4-35 MG-MCG Tablet 1 tablet Orally Once a day Not-Taking PROzac 20 MG Capsule 1 capsule Orally Once a day Not-Taking cloNIDine HCl 0.3 MG Tablet 1 tablet Orally Once a day; Duration: 30 days disregard 0.2 rx, note dose increase to 0.3 06/21/2025 Not-Taking Dexmethylphenidate HCl 5 mg Tablet TAKE ONE Tablet BY MOUTH EVERY DAY; Duration: 30 04/12/2025 Not-Taking cloNIDine HCl 0.2 MG Tablet 1 tablet Orally Once a day Not-Taking Social History Tobacco Use: Social History Observation Description Date Details (start date - stop date) Never Smoker NA - NA Social History Social Determinants Social Info Question Answer Notes PRAPARE Date Completed/Updated: 07/20/2025 What is your current housing situation? I have h ousing Are you worried about losing your housing? No What is the highest level of school that you have finished? High school diploma or GED PRAPARE Score: 2 [employer] Comprehensive Health As sessment Social Info Question Answer Notes Assessment of Health Literacy Date Last Health Assessment Completed : 12/22/2024 DAST Form: Social Info Question Answer Notes DAST-10 (2020 Edition) 1. Have you used drugs other than those required for medical reasons? No 2. Do you abuse more than one drug at a time? No 3. Are you always able to stop using drugs when you want to? Yes 4. Have you had blackouts or flashbacks as a result of drug use? No 5. Do you ever feel bad or guilty about your dina g use? No 6. Does your spouse (or pare nts) ever complain about your involvement with drugs? No 7. Have you neglected your f amily because of your use of drugs? No 8. Have you engaged in illeg al activities in order to obtain drugs? No 9. Have you ever experienced withdrawal symptoms (felt sick) when you stopped taking drugs? No 10. Have you had medical pro blems as a result of your drug use (e.g., memory loss, hepatitis, convulsions, bleeding etc.)? No Results: 0 Interpretation of Score: No problems reported Drug/Alcohol: Social Info Question Answer Notes AUDIT-C (Standard) Did you have a drink containing alcohol in the past year? No Points 0 Interpretation Negative Tobacco Use: Social Info Question Answer Notes Tobacco Control (Standard) Tobacco use: Nonsmoker Problems Problem Type SNOMED Code ICD Code Onset Dates Problem Status W/U Status Risk Notes Problem Borderline personality disorder () Borderline personality disorder (F60.3) Active confirmed Problem Insomnia (925640493) Insomnia (G47.00) Active confirmed Problem Attention deficit hyperactivity disorder (578305362) Attention deficit hyperactivity disorder (ADHD), combined type (F90.2) Active confirmed Problem Bipolar disorder in remission (64321724) Bipolar disorder in remission (F31.70) Active confirmed Vital Signs Heart Rate 102 /min 07/20/2025 Varsha GAUTHIERAilyn 07/20/2025 10:01:22 AM CUSTOM SHOE DESIGNER AND MAKER > Vitals Completed. Temperature 98 degrees Fahrenheit 07/20/2025 [facility] COMPUTER ANALYST SUPERVISOR, Ailyn 07/20/2025 10:01:22 AM CUSTOM SHOE DESIGNER AND MAKER > Vitals Completed. Respiratory Rate 18 /min 07/20/2025 [facility] COMPUTER ANALYST SUPERVISOR, Ailyn 07/20/2025 10:01:22 AM CUSTOM SHOE DESIGNER AND MAKER > Vitals Completed. Blood pressure diastolic 80 mm Hg 07/20/2025 Jolie seworth COMPUTER ANALYST SUPERVISOR, Ailyn 07/20/2025 10:01:22 AM CUSTOM SHOE DESIGNER AND MAKER > Vitals Completed. Oximetry 99 % 07/20/2025 [facility] COMPUTER ANALYST SUPERVISOR, Ailyn 07/20/2025 10:01:22 AM CUSTOM SHOE DESIGNER AND MAKER > Vitals Completed. Height-cm 167.64 cm 07/20/2025 [facility], Ailyn 07/20/2025 10:01:22 AM CUSTOM SHOE DESIGNER AND MAKER > Vitals Completed. Weight-kg 66.95 kg 07/20/2025 [facility], Ailyn 07/20/2025 10:01:22 AM CUSTOM SHOE DESIGNER AND MAKER > Vitals Completed. Height 66 in 07/20/2025 [facility], Ailyn 07/20/2025 10:01:22 AM CUSTOM SHOE DESIGNER AND MAKER > Vitals Completed. Blood pressure systolic 112 mm Hg 07/20/2025 [facility] COMPUTER ANALYST SUPERVISOR, Ailyn 07/20/2025 10:01:22 AM CUSTOM SHOE DESIGNER AND MAKER > Vitals Completed. Weight 147.6 lbs 07/20/2025 [facility], Ailyn 07/20/2025 10:01:22 AM CUSTOM SHOE DESIGNER AND MAKER > Vitals Completed. BMI 23.82 kg/m2 07/20/2025 [facility], Ailyn 07/20/2025 10:01:22 AM CUSTOM SHOE DESIGNER AND MAKER > Vitals Completed. 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.[address] [place] [address] 06/21/2025 Neda Guerra Borderline personality disorder F60.3 ; Attention deficit hyperactivity disorder (ADHD), combined type F90.2 ; Bipolar disorder in remission F31.70 and Insomnia G47.[address] [place] [address] 07/13/2025 Neda Guerra Borderline personality disorder F60.3 ; Attention deficit hyperactivity disorder (ADHD), combined type F90.2 ; Bipolar disorder in remission F31.70 and Insomnia G47.[address] [place] [address] 07/20/2025 Neda Guerra Bipolar disorder in remission F31.70 ; Bipolar disorder F31.9 ; Borderline personality disorder F60.3 and Attention deficit hyperactivity disorder (ADHD), combined type F90.[address] [place] [address] 03/01/2025 Neda Guerra [address] [place] [address] 03/15/2025 Neda Guerra Insomnia G47.[address] [place] [address] 05/09/2025 Neda Guerra [address] [place] [address] 07/05/2025 Neda Guerra [address] [place] [address] 07/11/2025 Neda Guerra [address] [place] [address] 07/18/2025 Neda Guerra [address] [place] [address] 07/20/2025 Neda Guerra [address] [place] [address] 06/30/2025 Neda Guerra [place] [address] [place] [address] 06/30/2025 Neda Guerra Assessments Encounter Date Diagnosis (ICD Code) Assessment Notes Treatment Notes Treatment Clinical Notes Section Notes 12/22/2024 Borderline personality disorder (ICD-10 - F60.3) 12/22/2024 Bipolar disorder in remission (ICD-10 - F31.70) 03/23/2025 Borderline personality disorder (ICD-10 - F60.3) 06/21/2025 Borderline personality disorder (ICD-10 - F60.3) 03/15/2025 Insomnia (ICD-10 - G47.00) 07/20/2025 Bipolar disorder (ICD-10 - F31.9) 07/20/2025 Bipolar disorder in remission (ICD-10 - F31.70) 07/13/2025 Borderline personality disorder (ICD-10 - F60.3) 07/13/2025 Attention deficit hyperactivity disorder (ADHD), combined type (ICD-10 - F90.2) 07/20/2025 Borderline personality disorder (ICD-10 - F60.3) 06/21/2025 Attention deficit hyperactivity disorder (ADHD), combined type (ICD-10 - F90.2) 12/22/2024 Attention deficit hyperactivity disorder (ADHD), combined type (ICD-10 - F90.2) 03/23/2025 Attention deficit hyperactivity disorder (ADHD), combined type (ICD-10 - F90.2) 03/23/2025 Bipolar disorder in remission (ICD-10 - F31.70) 03/23/2025 Insomnia (ICD-10 - G47.00) 12/22/2024 Insomnia (ICD-10 - G47.00) 06/21/2025 Bipolar disorder in remission (ICD-10 - F31.70) 07/20/2025 Attention deficit hyperactivity disorder (ADHD), combined type (ICD-10 - F90.2) 07/13/2025 Bipolar disorder in remission (ICD-10 - F31.70) 07/13/2025 Insomnia (ICD-10 - G47.00) 06/21/2025 Insomnia (ICD-10 - G47.00) 03/23/2025 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 The patient has been educated about current diagnosis, prognosis, associated risk factors and medications. Patient is to notify all providers about their currently prescribed medications. Discussed possible side effects of medications, risk vs benefits, black box warnings, any off-label use and problems to report should they occur. Patient has been explained possible tolerance or dependence may occur from the use of certain medications. Discussed risk vs benefit of current treatment plan including medications and alternative treatment options. Patient has been advised to call 911 or go to the ER as needed for thoughts of self-harm, SI/HI or worsening symptoms. Pt is to f/u with PCP as directed for routine health maintenance. Discussed healthy diet and exercise. Discussed sleep hygiene. Pt voices understanding to discussions and agrees with current treatment plan. F/u as directed or sooner if having any new or concerning s/s Plan Of Treatment Next Appt Details Provider Name:Neda suero, 08/16/2025 04:20:00 PM, [address] [facility], [place], [address], Insurance Providers Payer Name Payer Address Payer Phone Subscriber Number Group Number Insured Name Patient Relationship to Insured Coverage Start Date Coverage End Date Medicare NGS [address] [place] [address] [id number] Hannah Méndez Self - patient is the insured 5 Medicaid FQHC Second to [address] [id number] Hannah Méndez Self - patient is the insured 5 Medicare Part B [address] [place], [place] [id number] Hannah Méndez Self - patient is the insured 5 Medicaid FFS [address] [place], [place] [id number] Hannah Méndez Self - patient is the insured 5 Medicare Nonbillable [address] [place], [place] [id number] Hannah Méndez Self - patient is the insured 5 Medicaid Nonbillable [address] [place], [place] [id number] Hannah Méndez Self - patient is the insured 5
--- OUTSIDE RECORDS SUMMARY | 2025-07-28 22:58 | XMS_ITS | Encounter Summary ---
Author Organization [facility] Address [address] [place] [address] Phone Care Team Providers Care Editor Magazine Name Role Phone Provider, None Primary Care Provider Unavailabl e Reason for Visit * Reason Comments Medication Refill Encounter Details Date Type Department Care Team (Late st Contact Info) Description 10/06/2024 Refill [facility] [address] [place] [phone] Neda Guerra, ECOLOGICAL ECONOMIST, LIQUOR GRINDING MILL OPERATOR [address] [place] [phone] (Work) Medication Refill Social History Tobacco Use Types Packs/Day Years Used Date Smoking Tobacco: Never Smokeless Tobacco: Never Alcohol Use Standard Drinks/Week Comments Never 0 (1 standard drink = 0.6 oz pur e alcohol) [facility] Utilities Answer Date Recorded In the past 12 months has e electric, gas, oil, or water company [...] week 10/03/2024 How often do you attend chur ch or adventist services? 1 to 4 times per year 10/03/2024 Do you belong to any clubs o r organizations such as confucianist groups, unions, fraternal or athletic groups, or [...] Total Score - Questions 1-9 10 06/18 [facility] - Occupational Stress Questionnaire Answer [...] any time in the past 12 m [facility], were you homeless or living in a correction (including now)? No 10/03/2024 Sexually Active Control Partners Comments Never Comments Unknown Sex and Gender Information Value Date Recorded Sex Assigned at Female 11/25/2024 9:17 AM CDT Legal Sex Female 3:40 PM CDT Gender Identity Female 03/02/2024 12:09 AM CDT Sexual Orientation Bisexual 11/25/2024 9: 17 AM CDT documented as of this encounter Functional Status * BP Answer Date of Assessment Author 113/77 10/07/2024 9:45 AM Alva Arevalo LPN * Pulse Answer Date of Assessment Author 98 10/07/2024 9:45 AM Alva Arevalo LPN * Resp Answer Date of Assessment Author 18 10/07/2024 9:45 AM Alva Arevalo LPN * Initial Score Answer Date of Assessment Author 0 10/07/2024 9:00 AM Alva Arevalo LPN * Question Answer Date of Assessment Author Little interest or pleasure in doing things Not at all 10/07/2024 9:00 AM Alva Arevalo LPN Feeling down, depressed, or hopeless Not at all 10/07/2024 9:00 AM Alva Arevalo LPN Trouble falling or staying asleep, or sleeping too much Not at all 10/07/2024 9:00 AM Alva Arevalo LPN Feeling tired or having little energy Not at all 10/07/2024 9:00 AM Alva Arevalo LPN Poor appetite or overeating Several days 10/07/2024 9: 00 AM Alva Arevalo LPN Feeling bad about yourself - or that you are a failure or have let yourself or your family down Not at all 10/07/2024 9:00 AM Alva Arevalo LPN Trouble concentrating on things, such as reading the newspaper or watching television Several days 10/07/2024 9:00 AM Alva Arevalo LPN Moving or speaking so slowly that other people could have noticed. Or the opposite - being so fidgety or restless that you have been moving around a lot more than usual Not at all 10/07/2024 9:00 AM Alva Arevalo LPN Thoughts that you would be better off or hurting yourself in some way Not at all 10/07/2024 9:00 AM Alva Arevalo LPN Patient Health Questionnaire-9 Score 2 10/07/2024 9:00 AM Alva Arevalo LPN * Initial Score Answer Date of Assessment Author 0 10/07/2024 9:00 AM Alva Arevalo LPN * Over the past 2 weeks, how often have you been bothered by any of the following problems? Question Answer Date of Assessment Author Patient Health Questionnaire -2 Score 0 10/07/2024 9:00 AM Alva Arevalo LPN * Over the last 2 weeks, how often have you been bothered by any of the following problems? Question Answer Date of Assessment Author Feeling nervous, anxious, or on edge 1 10/07/2024 9:00 AM Alva Arevalo LPN Not being able to stop or control worrying 1 10/07/2024 9:00 AM Alva Arevalo LPN Worrying too much about different things 1 10/07/2024 9:00 AM Alva Arevalo LPN Trouble relaxing 1 10/07/2024 9:00 AM Alva Lan LPN Being so restless that it is hard to sit still 1 10/07/2024 9:00 AM Alva Arevalo LPN Becoming easily annoyed or irritable 1 10/07/2024 9:00 AM Alva Arevalo LPN Feeling afraid as if somethi ng awful might happen 0 10/07/2024 9:00 AM Alva Arevalo LPN MONSE-7 Total Score 6 10/07/2024 9:00 AM Alva Arevalo LPN * Over the past 2 weeks, how often have you been bothered by any of the following problems? Question Answer Date of Assessment Author Little interest or pleasure in doing things Not at all 10/07/2024 9:00 AM Alva Arevalo LPN Feeling down, depressed, or hopeless Not at all 10/07/2024 9:00 AM Alva Arevalo LPN Trouble falling or staying asleep, or sleeping too much Not at all 10/07/2024 9:00 AM Alva Arevalo LPN Feeling tired or having little energy Not at all 10/07/2024 9:00 AM Alva Arevalo LPN Poor appetite or overeating Several days 10/07/2024 9: 00 AM Alva Arevalo LPN Feeling bad about yourself - or that you are a failure or have let yourself or your family down Not at all 10/07/2024 9:00 AM Alva Arevalo LPN Trouble concentrating on things, such as reading the newspaper or watching television Several days 10/07/2024 9:00 AM Alva Arevalo LPN Moving or speaking so slowly that other people could have noticed. Or the opposite - being so fidgety or restless that you have been moving around a lot more than usual Not at all 10/07/2024 9:00 AM Alva Arevalo LPN Thoughts that you would be better off or hurting yourself in some way Not at all 10/07/2024 9:00 AM Alva Arevalo LPN Patient Health Questionnaire-9 Score 2 10/07/2024 9:00 AM Alva Arevalo LPN documented as of this encounter Mental Status * BP Answer Entry Date Author 113/77 10/07/2024 9:45 AM Alva Arevalo LPN * Pulse Answer Entry Date Author 98 10/07/2024 9:45 AM Alva Arevalo LPN * Initial Score Answer Entry Date Author 0 10/07/2024 9:00 AM Alva Arevalo LPN * Question Answer Entry Date Author Little interest or pleasure in doing things Not at all 10/07/2024 9:00 AM Alva Arevalo LPN Feeling down, depressed, or hopeless Not at all 10/07/2024 9:00 AM Alva Arevalo LPN Trouble falling or staying asleep, or sleeping too much Not at all 10/07/2024 9:00 AM Alva Arevalo LPN Feeling tired or having little energy Not at all 10/07/2024 9:00 AM Alva Arevalo LPN Poor appetite or overeating Several days 09/19 9:00 AM Alva Arevalo LPN Feeling bad about yourself - or that you are a failure or have let yourself or your family down Not at all 10/07/2024 9:00 AM Alva Arevalo LPN Trouble concentrating on things, such as reading the newspaper or watching television Several days 10/07/2024 9:00 AM Alva Arevalo LPN Moving or speaking so slowly that other people could have noticed. Or the opposite - being so fidgety or restless that you have been moving around a lot more than usual Not at all 10/07/2024 9:00 AM Alva Arevalo LPN Thoughts that you would be better off or hurting yourself in some way Not at all 10/07/2024 9:00 AM Alva Arevalo LPN Patient Health Questionnaire-9 Score 2 10/07/2024 9:00 AM Alva Arevalo LPN documented in this encounter Plan of Treatment Not on file documented as of this encounter Visit Diagnoses Diagnosis Insomnia, unspecified type documented in this encounter Additional Health Concerns Assessment Noted Time PHQ-9 Depression Total Score: 10 07/01/ 024 4:00 PM DIRECTOR OF ASSISTED LIVING documented as of this encounter Care Teams Editor Magazine Relationship Specialty Start Date End Date Provider, None [place] PCP - General 12/31/21 documented as of this encounter
[2025-07-28 23:12] VITALS: BP 110/68; PULSE 98; RESP 16; O2SAT 99
== END 2025-07-28 23:12 | disposition home or self-care (01) ==
PROVIDERS: Emergency Provider Emergency Medicine
DX: J98.01 Acute bronchospasm (principal)
CPT/HCPCS: 94640; 99283

== ENCOUNTER 2025-07-30 13:56 | Emergency (ER) | payer MEDICARE, MEDICAID, SELFPAY ==
--- OUTSIDE RECORDS SUMMARY | 2025-07-30 13:59 | XMS_ITS | Encounter Summary ---
Author Organization [facility] Address [address] [place] [address] Phone Care Team Providers Care Product Trainer Name Role Phone Provider, None Primary Care Provider Unavailabl e Reason for Visit * Reason Comments Medication Refill Encounter Details Date Type Department Care Team (Late st Contact Info) Description 05/20/2024 Refill [facility] [address] [place] [phone] Neda Guerra, REAL TIME ANALYST, YARDAGE ESTIMATOR [address] [place] [phone] (Work) Medication Refill Social History Tobacco [...] as of this encounter Visit Diagnoses Diagnosis Attention-deficit hyperactivity disorder, combined type Attention deficit disorder with hyperactivity documented in this encounter Care Teams Product Trainer Relationship Specialty Start Date End Date Provider, None [place] PCP - General 12/31/21 documented as of this encounter
--- OUTSIDE RECORDS SUMMARY | 2025-07-30 13:59 | XMS_ITS | Encounter Summary ---
Author Organization [facility] Address [address] [place] [address] Phone Care Team Providers Care Chemistry Faculty Member Name Role Phone Provider, None Primary Care Provider Unavailabl e Reason for Visit * Reason Comments Medication Refill Encounter Details Date Type Department Care Team (Late st Contact Info) Description 05/16/2024 Refill [facility] [address] [place] [phone] Neda Guerra, SCHOOL BOAT DRIVER, HORTICULTURAL SERVICES SUPERVISOR [address] [place] [phone] (Work) Medication Refill Social History Tobacco [...] unspecified documented in this encounter Care Teams Chemistry Faculty Member Relationship Specialty Start Date End Date Provider, None [place] PCP - General 12/31/21 documented as of this encounter
--- OUTSIDE RECORDS SUMMARY | 2025-07-30 13:59 | XMS_ITS | Patient Health Record ---
Author Organization [facility] Address [address] [address] Care Team Providers Care Lock Setter Name Role Phone Neda Guerra Primary Care Provider [phone] Allergies Allergen (clinical drug ingredient) Drug/Non Drug Allergy documented on EMR Reaction Allergy Type Onset Date Status diphenhydramine Benadryl anaphylaxis Drug Allergy Active amoxicillin Amoxicillin Unknown Drug Allergy Act yobani Results Component Value Reference Range Notes COMPREHENSIVE METABOLIC PANE L (CMP) Reviewed date:05/03/2025 01:31:58 PM Interpretation: Performing Lab: Notes/Report: LITHIUM Reviewed date:05/03/2025 01:31:02 PM Interpretation: Performing Lab: Notes/Report: LITHIUM 0.7 TSH W/REFLEX TO FT4 Reviewed date:05/03/2025 01:35:54 PM Interpretation: Performing Lab: Notes/Report: Reason For [...] a day; Duration: 30 days 07/13/2025 Not-Taking [place] Carbonate 600 MG Capsule 1 capsule at [...] day; Duration: 30 days thirty 09/24/2025 Active [place] Carbonate 300 MG Capsule 1 capsule in [...] school diploma or GED PRAPARE Score: 2 [facility] Comprehensive Health As sessment Social Info Question [...] personality disorder (F60.3) Active confirmed Problem Insomnia (407217851) Insomnia (G47.00) Active confirmed Problem Attention deficit hyperactivity disorder (881271541) Attention deficit hyperactivity disorder (ADHD), combined type (F90.2) Active confirmed Problem Bipolar disorder in remission (72246999) Bipolar disorder in remission (F31.70) Active confirmed Vital Signs Heart Rate 102 /min 07/20/2025 Varsha GAUTHIERAilyn 07/20/2025 10:01:22 AM SURVEY WORKER > Vitals Completed. Temperature 98 degrees Fahrenheit 07/20/2025 [facility] COMMUNITY NURSE, Ailyn 07/20/2025 10:01:22 AM SURVEY WORKER > Vitals Completed. Respiratory Rate 18 /min 07/20/2025 [facility] COMMUNITY NURSE, Ailyn 07/20/2025 10:01:22 AM SURVEY WORKER > Vitals Completed. Blood pressure diastolic 80 mm Hg 07/20/2025 Jolie [facility] COMMUNITY NURSE, Ailyn 07/20/2025 10:01:22 AM SURVEY WORKER > Vitals Completed. Oximetry 99 % 07/20/2025 [facility] COMMUNITY NURSE, Ailyn 07/20/2025 10:01:22 AM SURVEY WORKER > Vitals Completed. Height-cm 167.64 cm 07/20/2025 [facility], Ailyn 07/20/2025 10:01:22 AM SURVEY WORKER > Vitals Completed. Weight-kg 66.95 kg 07/20/2025 [facility], Ailyn 07/20/2025 10:01:22 AM SURVEY WORKER > Vitals Completed. Height 66 in 07/20/2025 [facility], Ailyn 07/20/2025 10:01:22 AM SURVEY WORKER > Vitals Completed. Blood pressure systolic 112 mm Hg 07/20/2025 [facility] COMMUNITY NURSE, Ailyn 07/20/2025 10:01:22 AM SURVEY WORKER > Vitals Completed. Weight 147.6 lbs 07/20/2025 [facility], Ailyn 07/20/2025 10:01:22 AM SURVEY WORKER > Vitals Completed. BMI 23.82 kg/m2 07/20/2025 [facility], Ailyn 07/20/2025 10:01:22 AM SURVEY WORKER > Vitals Completed. 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.[address] [place] [address] 06/21/2025 Neda Guerra Borderline personality disorder F60.3 ; Attention deficit hyperactivity disorder (ADHD), combined type F90.2 ; Bipolar disorder in remission F31.70 and Insomnia G47.[address] [place] [address] 07/13/2025 Neda Guerra Borderline personality disorder F60.3 ; Attention deficit hyperactivity disorder (ADHD), combined type F90.2 ; Bipolar disorder in remission F31.70 and Insomnia G47.[address] [place] [address] 07/20/2025 Neda Guerra Bipolar disorder in remission F31.70 ; Bipolar disorder F31.9 ; Borderline personality disorder F60.3 and Attention deficit hyperactivity disorder (ADHD), combined type F90.[address] [place] [address] 03/01/2025 Neda Guerra [address] [place] [address] 03/15/2025 Neda Guerra Insomnia G47.[address] [place] [address] 05/09/2025 Neda Guerra [address] [place] [address] 07/05/2025 Neda Guerra [address] [place] [address] 07/11/2025 Neda Guerra [address] [place] [address] 07/18/2025 Neda Guerra [address] [place] [address] 07/20/2025 Neda Guerra [address] [place] [address] 06/30/2025 Neda Guerra [facility] [address] [place] [address] 06/30/2025 eNda Guerra Assessments Encounter Date Diagnosis (ICD Code) Assessment Notes Treatment Notes Treatment Clinical Notes Section Notes 12/22/2024 Bipolar disorder in remission (ICD-10 - F31.70) 03/15/2025 Insomnia (ICD-10 - G47.00) 03/23/2025 Borderline personality disorder (ICD-10 - F60.3) 12/22/2024 Borderline personality disorder (ICD-10 - F60.3) 06/21/2025 Borderline personality disorder (ICD-10 - F60.3) 07/13/2025 Borderline personality disorder (ICD-10 - F60.3) 07/20/2025 Bipolar disorder (ICD-10 - F31.9) 07/20/2025 Bipolar disorder in remission (ICD-10 - F31.70) 07/20/2025 Borderline personality disorder (ICD-10 - F60.3) 07/13/2025 Attention deficit hyperactivity disorder (ADHD), combined type (ICD-10 - F90.2) 06/21/2025 Attention deficit hyperactivity disorder (ADHD), combined type (ICD-10 - F90.2) 03/23/2025 Attention deficit hyperactivity disorder (ADHD), combined type (ICD-10 - F90.2) 03/23/2025 Bipolar disorder in remission (ICD-10 - F31.70) 12/22/2024 Attention deficit hyperactivity disorder (ADHD), combined type (ICD-10 - F90.2) 03/23/2025 Insomnia (ICD-10 - G47.00) 12/22/2024 Insomnia (ICD-10 - G47.00) 06/21/2025 Bipolar disorder in remission (ICD-10 - F31.70) 07/13/2025 Bipolar disorder in remission (ICD-10 - F31.70) 07/20/2025 Attention deficit hyperactivity disorder (ADHD), combined type (ICD-10 - F90.2) 07/13/2025 Insomnia (ICD-10 - G47.00) 06/21/2025 Insomnia (ICD-10 - G47.00) 03/23/2025 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.899) 06/21/2025 Other continue meds 07/13/2025 Other continue lithium 300 bid continue prozac 40 resume focalin start dayvigo 03/23/2025 Other continue meds labs printed, will have done at [facility] before next visit 12/22/2024 Other increase [...] Provider Name:Neda suero, 08/16/2025 04:20:00 PM, [address] [facility], [place], [address], Insurance Providers Payer Name Payer Address Payer Phone Subscriber Number Group Number Insured Name Patient Relationship to Insured Coverage Start Date Coverage End Date Medicare NGS [address] [place] [address] [id number] Hannah Méndez Self - patient is the insured 5 Medicaid FQHC Second to [address] [id number] Hannah Méndez Self - patient is the insured 5 Medicare Part B [address] [place], [place] [id number] Hannah Méndez Self - patient is the insured 5 Medicaid FFS [address] [id number] Hannah Méndez Self - patient is the insured 5 Medicare Nonbillable [address] [place], [place] [id number] Hannah Méndez Self - patient is the insured 5 Medicaid Nonbillable [address], [place] [id number] Hannah Méndez Self - patient is the insured 5
--- OUTSIDE RECORDS SUMMARY | 2025-07-30 13:59 | XMS_ITS | Clinical Summary ---
Author Organization [facility] Address [address] [place] [phone] Phone Care Team Providers Care Support Services Rep Name Role Phone Provider, None Primary Care [...] mouth every morning. 90 Capsule 5 Active [place] Carbonate 600 MG Capsule Take 1 Capsule by mouth nightly. 90 Capsule 5 Active zolpidem (Ambien) 5 MG TabletIndications: Insomnia, unspecified type Take 1.5 Tablets by mouth nightly as needed for Sleep. 45 Tablet 3 5 Active cloNIDine (CATAPRES) 0.2 MG Tablet Take 1 Tablet by mouth nightly. 30 Tablet 3 5 Active Active Problems Problem Noted Date Diagnosed Date Other half-way (current) drug therapy Insomnia 08/26/2023 Borderline personality disorder 04/22/2023 Attention deficit hyperactivity disorder, combin ed type 03/11/2023 Mood disorder 03/11/2023 Social History Tobacco Use Types Packs/Day Years Used Date Smoking Tobacco: Never Smokeless Tobacco: Never Tobacco Cessation:Counseling Given: Not Answered Alcohol Use Standard Drinks/Week Comments Never 0 (1 standard drink = 0.6 oz pur e alcohol) [facility] [employer] Answer Date Recorded In the past 12 months has [employer], gas, oil, or water [employer] threatened to shut off services in your home? No 10/03/2024 Social Connection and Isolation Panel Answer Date Recorded In a typical week, how many times do you talk on the phone with family, friends, or neighbors? More than three times a week 10/03/2024 How often do you get togethe r with friends or relatives? Once a week 10/03/2024 How often do you attend [facility] or mu-ism services? 1 to 4 times per year 10/03/2024 Do you belong to any clubs o r organizations such as yazdanism groups, unions, fraternal or athletic groups, or [...] Total Score - Questions 1-9 10 06/18 [facility] - Occupational Stress Questionnaire Answer Date [...] any time in the past 12 m [facility], were you homeless or living in a [place] health care facility (including now)? No 10/03/2024 Sexually Active Control [...] Comments Blood Pressure 113/77 10/07/2024 9:45 AM DEAN OF ADMISSIONS Pulse 98 10/07/2024 9:45 AM DEAN OF ADMISSIONS Temperature 36.7 C (98.1 F) 01/02/2022 5:51 PM CDT Respiratory Rate 18 10/07/2024 9:45 AM DEAN OF ADMISSIONS Oxygen Saturation 95% 07/01/2024 4:19 PM DEAN OF ADMISSIONS Inhaled Oxygen Concentration - - Weight 60.3 kg (133 lb) 10/07/2024 9:45 AM DEAN OF ADMISSIONS Height 167.6 cm (5' 6) 10/07/2024 9:45 AM DEAN OF ADMISSIONS Body Mass Index 21.47 10/07/2024 9:45 AM DEAN OF ADMISSIONS Plan of Treatment Health Maintenance Due Date [...] Insurance MEDICAID YOUTHCARE MEDICAID YOUTHCARE Care Teams Support Services Rep Relationship Specialty Start Date End Date Provider, None [place] PCP - General 12/31/21
--- OUTSIDE RECORDS SUMMARY | 2025-07-30 13:59 | XMS_ITS | Encounter Summary ---
Author Organization [facility] Address [address] [place] [address] Phone Care Team Providers Care Tourist Guide Name Role Phone Provider, None Primary Care Provider Unavailabl e Reason for Visit * Reason Comments Medication Refill Encounter Details Date Type Department Care Team (Late st Contact Info) Description 10/06/2024 Refill [facility] [address] [place] [phone] Neda Guerra, BAG PATCHER, KENNEL HAND [address] [place] [phone] (Work) Medication Refill Social History Tobacco Use Types Packs/Day Years Used Date Smoking Tobacco: Never Smokeless Tobacco: Never Alcohol Use Standard Drinks/Week Comments Never 0 (1 standard drink = 0.6 oz pur e alcohol) [facility] Utilities Answer Date Recorded In the [...] often do you attend chur ch or restoration services? 1 to 4 times per year 10/03/2024 Do you belong to any clubs o r organizations such as holiness groups, unions, fraternal or athletic groups, or [...] Total Score - Questions 1-9 10 06/18 [facility] - Occupational Stress Questionnaire Answer Date Recorded [...] any time in the past 12 m [facility], were you homeless or living in a skilled nursing (including now)? No 10/03/2024 Sexually Active Control [...] Total Score: 10 07/01/ 024 4:00 PM MANAGER ENT documented as of this encounter Care Teams Tourist Guide Relationship Specialty Start Date End Date Provider, None [place] PCP - General 12/31/21 documented as of this encounter
--- OUTSIDE RECORDS SUMMARY | 2025-07-30 13:59 | XMS_ITS | Clinical Summary ---
Author Organization [facility] Address [address] [place] [id number] Care Team Providers Care Dice Spotter Name Role Phone Yesi Delvalle PA-C Primary Care Provider [phone]- [phone] Allergies Active Allergy Reactions Criticality Noted Date [...] Department Care Team Description 07/21/2025 4:42 PM ENGINEERING CONSULTANT - 07/23/2025 10:05 PM ENGINEERING CONSULTANT Hospital Encounter [facility] Intensive Care Unit [address] [place] [phone] Luis Manuel Shankar MD Hipskind, Timothy, MD Toxic effect of acetaminophen, intentional self-harm, initial encounter (HCC) (Primary Dx); Suicide attempt (HCC); Hypomagnesemia; Hypokalemia; Lactic acidosis Discharge Disposition: [facility] Hospital 07/14/2025 4:17 PM ENGINEERING CONSULTANT - 07/15/2025 1:41 AM ENGINEERING CONSULTANT Emergency [facility] Emergency Department [address] [place] [phone] Jessi Restrepo MD Suicidal ideation (Primary Dx) Discharge Disposition: [facility] Hospital 07/13/2025 5:45 PM ENGINEERING CONSULTANT Office Visit [address] [phone] Mylene Singh APRN Acute viral pharyngitis (Primary Dx); Sore throat 07/09/2025 7:21 PM ENGINEERING CONSULTANT - 07/10/2025 12:29 AM [facility] Emergency [facility] Emergency Department [address] [place] [phone] Casimiro Arzola MD Back pain, unspecified back location, unspecified back pain laterality, unspecified chronicity (Primary Dx) Discharge Disposition: Home 07/03/2025 12:26 PM ENGINEERING CONSULTANT - 07/04/2025 11:05 AM ENGINEERING CONSULTANT Hospital Encounter [facility] Intensive Care Unit [address] [place] [phone] Jessi Restrepo MD Riley, Patrick L, MD Suicidal deliberate poisoning, initial encounter (HCC) (Primary Dx); Generalized anxiety disorder Discharge Disposition: Acute [facility] 06/22/2025 5:13 PM ENGINEERING CONSULTANT - 06/23/2025 2:06 AM ENGINEERING CONSULTANT Emergency [facility] Emergency Department [address] [place] [phone] Jake Ragland DO Suicidal ideation (Primary Dx); Depression, unspecified depression type Discharge Disposition: [facility] Hospital 06/07/2025 5:45 PM CDT Office Visit [facility] [place] [phone] Bronchitis (Primary Dx) 05/24/2025 3:46 PM CDT - 05/24/2025 11:22 PM CDT Emergency [facility] Emergency Department [address] [place] [phone] Philipp Bender MD Suicidal ideation (Primary Dx) Discharge Disposition: [facility] 05/23/2025 8:39 PM CDT - 05/23/2025 11:03 PM CDT Emergency [facility] Emergency Department [address] [place] [phone] Feliciano Spence MD Impairing emotional outbursts (Primary Dx) Discharge Disposition: Home 05/15/2025 9:24 PM CDT - 05/16/2025 9:41 AM CDT Emergency [facility] Emergency Department [address] [place] [phone] Pema Cardoza DO Mooth, David Carroll, MD [...] any time in the past 12 m [facility], were you homeless or living in a [facility] (including now)? No 07/22/2025 [facility] Utilities Answer Date Recorded In the [...] Comments Blood Pressure 135/82 07/23/2025 6:00 PM ENGINEERING CONSULTANT Pulse 105 07/23/2025 6:00 PM ENGINEERING CONSULTANT Temperature 36.7 C (98.1 F) 07/23/2025 6:00 PM ENGINEERING CONSULTANT Respiratory Rate 16 07/23/2025 6:00 PM ENGINEERING CONSULTANT Oxygen Saturation 97% 07/23/2025 6:00 PM ENGINEERING CONSULTANT Inhaled Oxygen Concentration - - Weight 67.4 kg (148 lb 9.4 oz) 07/22/2025 1:01 A M ENGINEERING CONSULTANT Height 167.6 cm (5' 6) 07/22/2025 1:01 AM ENGINEERING CONSULTANT Body Mass Index 23.98 07/22/2025 1:01 AM ENGINEERING CONSULTANT Plan of Treatment Health Maintenance Due Date [...] METABOLIC PANEL (CHEM8) Timed 07/23/2025 11:31 AM ENGINEERING CONSULTANT COMPREHENSIVE METABOLIC PANEL Routine 07/23/2025 3:44 AM ENGINEERING CONSULTANT CBC W AUTO DIFF Routine 07/23/2025 3:44 AM ENGINEERING CONSULTANT ACETAMINOPHEN LEVEL Timed 07/22/2025 8 :58 PM ENGINEERING CONSULTANT PROTIME (PROTHROMBIN TIME) Timed 07/22/2025 8:58 PM ENGINEERING CONSULTANT APTT Timed 07/22/2025 8:58 PM ENGINEERING CONSULTANT COMPREHENSIVE METABOLIC PANEL Timed 07/22/2025 8:58 PM ENGINEERING CONSULTANT T3 FREE Routine 07/22/2025 2:28 PM ENGINEERING CONSULTANT TSH THIRD GENERATION Routine 07/22/2025 2:28 PM ENGINEERING CONSULTANT ACETAMINOPHEN LEVEL Timed 07/22/2025 4 :08 AM ENGINEERING CONSULTANT MAGNESIUM Routine 07/22/2025 4:08 AM ENGINEERING CONSULTANT HEPATIC (LIVER) FUNCTION PANEL Routine 07/22/2025 4:08 AM ENGINEERING CONSULTANT COMPREHENSIVE METABOLIC PANEL Routine 07/22/2025 4:08 AM ENGINEERING CONSULTANT CBC W AUTO DIFF Routine 07/22/2025 4:08 AM ENGINEERING CONSULTANT LACTIC ACID, SERUM STAT 07/22/2025 12 :08 AM ENGINEERING CONSULTANT LACTIC ACID, SERUM STAT 07/21/2025 9: 20 PM ENGINEERING CONSULTANT SALICYLATE LEVEL STAT 07/21/2025 8:34 PM ENGINEERING CONSULTANT ACETAMINOPHEN LEVEL STAT 07/21/2025 8 :34 PM ENGINEERING CONSULTANT COMPREHENSIVE METABOLIC PANEL STAT 07/21/2025 8:34 PM ENGINEERING CONSULTANT EKG STAT 07/21/2025 8:18 PM ENGINEERING CONSULTANT BLOOD GAS VENOUS STAT 07/21/2025 6:49 PM ENGINEERING CONSULTANT INFLUENZA A/B, RSV, COVID BY PCR STAT 07/21/2025 5:24 PM ENGINEERING CONSULTANT DRUG SCREEN MEDICAL STAT 07/21/2025 5 :21 PM ENGINEERING CONSULTANT URINALYSIS WITH REFLEX TO CULTURE, IF INDICATED STAT 07/21/2025 5:21 PM ENGINEERING CONSULTANT PATH REVIEW, SMEAR Routine 07/21/2025 4: 55 PM ENGINEERING CONSULTANT LACTIC ACID, SERUM STAT 07/21/2025 4: 55 PM ENGINEERING CONSULTANT HCG QUANTITATIVE STAT 07/21/2025 4:55 PM ENGINEERING CONSULTANT APTT STAT 07/21/2025 4:55 PM ENGINEERING CONSULTANT PROTIME (PROTHROMBIN TIME) STAT 07/21/2025 4:55 PM ENGINEERING CONSULTANT MAGNESIUM STAT 07/21/2025 4:55 PM ENGINEERING CONSULTANT SALICYLATE LEVEL STAT 07/21/2025 4:55 PM ENGINEERING CONSULTANT ALCOHOL SERUM MEDICAL STAT 07/21/2025 4:55 PM ENGINEERING CONSULTANT ACETAMINOPHEN LEVEL STAT 07/21/2025 4 :55 PM ENGINEERING CONSULTANT TSH THIRD GENERATION STAT 07/21/2025 4:55 PM ENGINEERING CONSULTANT T4 FREE STAT 07/21/2025 4:55 PM ENGINEERING CONSULTANT COMPREHENSIVE METABOLIC PANEL STAT 07/21/2025 4:55 PM ENGINEERING CONSULTANT CBC W AUTO DIFF STAT 07/21/2025 4:55 PM ENGINEERING CONSULTANT EKG STAT 07/21/2025 4:44 PM ENGINEERING CONSULTANT POCT URINE STAT 07/14/2025 4:57 PM ENGINEERING CONSULTANT URINALYSIS WITH REFLEX TO CULTURE, IF INDICATED STAT 07/14/2025 4:57 PM ENGINEERING CONSULTANT DRUG SCREEN MEDICAL STAT 07/14/2025 4 :57 PM ENGINEERING CONSULTANT INFLUENZA A/B, RSV, COVID BY PCR STAT 07/14/2025 4:57 PM ENGINEERING CONSULTANT T4 FREE STAT 07/14/2025 4:39 PM ENGINEERING CONSULTANT SALICYLATE LEVEL STAT 07/14/2025 4:39 PM ENGINEERING CONSULTANT ACETAMINOPHEN LEVEL STAT 07/14/2025 4 :39 PM ENGINEERING CONSULTANT ALCOHOL SERUM MEDICAL STAT 07/14/2025 4:39 PM ENGINEERING CONSULTANT TSH THIRD GENERATION STAT 07/14/2025 4:39 PM ENGINEERING CONSULTANT COMPREHENSIVE METABOLIC PANEL STAT 07/14/2025 4:39 PM ENGINEERING CONSULTANT CBC W AUTO DIFF STAT 07/14/2025 4:39 PM ENGINEERING CONSULTANT POCT INFLUENZA A/B Routine 07/13/2025 5: 59 PM ENGINEERING CONSULTANT Sore throat POCT COVID ANTIGEN HOME TEST (FLOWFLEX) Routine 07/13/2025 5:52 PM ENGINEERING CONSULTANT Sore throat POCT RAPID STREP A Routine 07/13/2025 5: 52 PM ENGINEERING CONSULTANT Sore throat CT ABDOMEN PELVIS W CONTRAST STAT 07/09/2025 9:21 PM ENGINEERING CONSULTANT POCT URINE STAT 07/09/2025 9:03 PM ENGINEERING CONSULTANT URINALYSIS WITH REFLEX TO CULTURE, IF INDICATED STAT 07/09/2025 8:22 PM ENGINEERING CONSULTANT COMPREHENSIVE METABOLIC PANEL STAT 07/09/2025 8:21 PM ENGINEERING CONSULTANT CBC W AUTO DIFF STAT 07/09/2025 8:21 PM ENGINEERING CONSULTANT LIPASE STAT 07/09/2025 8:21 PM ENGINEERING CONSULTANT AMYLASE STAT 07/09/2025 8:21 PM ENGINEERING CONSULTANT LITHIUM LEVEL Timed 07/03/2025 5:58 PM ENGINEERING CONSULTANT COMPREHENSIVE METABOLIC PANEL Timed 07/03/2025 5:58 PM ENGINEERING CONSULTANT MRSA BY PCR (NARES ONLY) Routine 07/03/2025 4:42 PM ENGINEERING CONSULTANT LITHIUM LEVEL Timed 07/03/2025 4:11 PM ENGINEERING CONSULTANT COMPREHENSIVE METABOLIC PANEL Timed 07/03/2025 4:11 PM ENGINEERING CONSULTANT URINALYSIS WITH REFLEX TO CULTURE, IF INDICATED STAT 07/03/2025 2:49 PM ENGINEERING CONSULTANT DRUG SCREEN MEDICAL STAT 07/03/2025 2 :49 PM ENGINEERING CONSULTANT POCT URINE STAT 07/03/2025 2:30 PM ENGINEERING CONSULTANT XR ABDOMEN KUB STAT 07/03/2025 2:12 PM ENGINEERING CONSULTANT LITHIUM LEVEL STAT 07/03/2025 2:10 PM ENGINEERING CONSULTANT XR CHEST PORTABLE STAT 07/03/2025 12: 55 PM ENGINEERING CONSULTANT LIPASE STAT 07/03/2025 12:40 PM ENGINEERING CONSULTANT MAGNESIUM STAT 07/03/2025 12:40 PM ENGINEERING CONSULTANT ALCOHOL SERUM MEDICAL STAT 07/03/2025 12:40 PM ENGINEERING CONSULTANT ACETAMINOPHEN LEVEL STAT 07/03/2025 1 2:40 PM ENGINEERING CONSULTANT SALICYLATE LEVEL STAT 07/03/2025 12:4 0 PM ENGINEERING CONSULTANT TSH THIRD GENERATION STAT 07/03/2025 12:40 PM ENGINEERING CONSULTANT COMPREHENSIVE METABOLIC PANEL STAT 07/03/2025 12:40 PM ENGINEERING CONSULTANT CBC W AUTO DIFF STAT 07/03/2025 12:40 PM ENGINEERING CONSULTANT INFLUENZA A/B, RSV, COVID BY PCR STAT 07/03/2025 12:39 PM ENGINEERING CONSULTANT EKG STAT 07/03/2025 12:28 PM ENGINEERING CONSULTANT INFLUENZA A/B, RSV, COVID BY PCR STAT 06/22/2025 6:49 PM ENGINEERING CONSULTANT MAGNESIUM STAT 06/22/2025 6:01 PM ENGINEERING CONSULTANT SALICYLATE LEVEL STAT 06/22/2025 6:01 PM ENGINEERING CONSULTANT ALCOHOL SERUM MEDICAL STAT 06/22/2025 6:01 PM ENGINEERING CONSULTANT ACETAMINOPHEN LEVEL STAT 06/22/2025 6 :01 PM ENGINEERING CONSULTANT TSH THIRD GENERATION STAT 06/22/2025 6:01 PM ENGINEERING CONSULTANT T4 FREE STAT 06/22/2025 6:01 PM ENGINEERING CONSULTANT COMPREHENSIVE METABOLIC PANEL STAT 06/22/2025 6:01 PM ENGINEERING CONSULTANT CBC W AUTO DIFF STAT 06/22/2025 6:01 PM ENGINEERING CONSULTANT LITHIUM LEVEL STAT 06/22/2025 5:50 PM ENGINEERING CONSULTANT DRUG SCREEN MEDICAL STAT 06/22/2025 5 :33 PM ENGINEERING CONSULTANT URINALYSIS WITH REFLEX TO CULTURE, IF INDICATED STAT 06/22/2025 5:33 PM ENGINEERING CONSULTANT POCT URINE Routine 06/07/2025 6:15 PM CDT [...] BASIC METABOLIC PANEL (CHEM8) (07/23/2025 11:31 AM ENGINEERING CONSULTANT) Glucose 123(H) 74 - 100 MG/DL [facility] Comment: (NOTE) Normal fasting blood glucose: 74-100 mg/dl The [place] [employer] recommends the following criteria for the diagnosis of diabetes 1. Symptoms of diabetes and a random glucose >= 200 mg/dL 2. Fasting glucose >= 126 mg/dL Impaired fasting glucose, a fasting glucose between 100 and 125 mg/dL is defined as a category at risk for future diabetes and cardiovacular disease. Blood Urea Nitrogen 3(L) 7 - 17 MG/DL [facility] Creatinine 0.5(L) 0.52 - 1.04 MG/DL [facility] Sodium 140 136 - 145 MMOL/L [facility] Potassium 3.7 3.5 - 5.1 MMOL/L [facility] Chloride 110(H) 98 - 107 MMOL/L [facility] Co2 22 22 - 30 MMOL/L [facility] Calcium 9.2 8.6 - 10.3 MG/DL [facility] Est GFR >90 >90 ML/MIN/1. 73sq.m [facility] GFR Comment Reported eGFR is based on the CKD-EPI 2020 equation that does not use a race coefficient. [facility] Comment: eGFR declines with age, even in people without kidney disease. SEE CHART BELOW FOR AVERAGE ESTIMATED eGFR BASED ON AGE. AGE(YEARS) AVERAGE ESTIMATED GFR <60 >90 60-69 85 >70 75 Anion Gap 12 10.0 - 22.0 MMOL/L [facility] Blood 07/23/2025 11:3 1 AM ENGINEERING CONSULTANT 07/23/2025 11:34 AM ENGINEERING CONSULTANT us Kathya Walker NP CHEMISTRY ORDERABLES Final Resul t [facility] [address] [place] [address], [facility] [phone] * (ABNORMAL) CBC W AUTO DIFF (07/23/2025 3:44 AM ENGINEERING CONSULTANT) Only the most recent of10 resultswithin the time period is included. White Blood Cell Count 6.6 4.8 - 10.8 THOUS/uL [facility] Red Blood Cell Count 3.73(L) 4.20 - 5.40 MIL/uL [facility] Hemoglobin 10.6(L) 12.0 - 16.0 GM/DL [facility] Hematocrit 32.1(L) 37.0 - 47.0 % [facility] Mean Corpuscular Volume 86.0 81 - 99 FL [facility] Mean Corpuscular Hemoglobin 28.5(L) 30.0 - 33.2 PG [facility] Mean Corpuscular Hemoglobin Conc 33.1 33.0 - 37.0 G/DL [facility] Rdwcv 12.9 11.5 - 14.5 % [facility] Platelet Count 255 130 - 400 THOUS/uL [facility] Mean Platelet Volume 8.6 7.4 - 10.4 FL [facility] Differential Type AUTO CR [facility] Neutrophils 55.3 37 - 77 % [facility] Lymphs 34.8 24 - 44 % [facility] Monocytes 8.7(H) 3.5 - 7.9 % [facility] Eos 0.6 0.0 - 6.0 % [facility] Basos 0.6 0.0 - 2.0 % [facility] Neutrophils Absolute Count 3.7 1.8 - 7.9 THOUS/uL [facility] Lymphocytes Absolute Count 2.3 1.1 - 4.2 THOUS/uL [facility] Monocytes Absolute Count 0.6 0.1 - 1.0 THOUS/uL [facility] Eosinophils Absolute Count 0.0 0.0 - 0.5 THOUS/uL [facility] Basophils Absolute Count 0.0 0.0 - 0.2 THOUS/uL [facility] Blood 07/23/2025 3:44 AM ENGINEERING CONSULTANT 07/23/2025 4:14 AM ENGINEERING CONSULTANT us Kathya Walker NP HEMATOLOGY ORDERABLES Final Resu lt [facility] [address] [place] [address], [facility] [phone] * (ABNORMAL) COMPREHENSIVE METABOLIC PANEL (07/23/2025 3:44 AM ENGINEERING CONSULTANT) Only the most recent of14 resultswithin the time period is included. Glucose 99 74 - 100 MG/DL [facility] Comment: (NOTE) Normal fasting blood glucose: 74-100 mg/dl The [place] [employer] recommends the following criteria for the diagnosis of diabetes 1. Symptoms of diabetes and a random glucose >= 200 mg/dL 2. Fasting glucose >= 126 mg/dL Impaired fasting glucose, a fasting glucose between 100 and 125 mg/dL is defined as a category at risk for future diabetes and cardiovacular disease. Blood Urea Nitrogen 3(L) 7 - 17 MG/DL [facility] Creatinine 0.4(L) 0.52 - 1.04 MG/DL [facility] Sodium 139 136 - 145 MMOL/L [facility] Potassium 2.9(LL) 3.5 - 5.1 MMOL/L [facility] Chloride 111(H) 98 - 107 MMOL/L [facility] Co2 24 22 - 30 MMOL/L [facility] Calcium 8.9 8.6 - 10.3 MG/DL [facility] Protein Total 5.5(L) 6.3 - 8.2 G/DL [facility] Comment: (NOTE) Plasma samples have a total protein concentration approximately 0.3 g/dL higher that serum due to the presence of fibrinogen. Albumin 3.1(L) 3.5 - 5.0 G/DL [facility] Globulin 2.4 1.4 - 4.8 [facility] Bilirubin, Total 0.4 0.2 - 1.3 MG/DL [facility] AST(SGOT) 16 14 - 36 U/L [facility] Alt (SGPT) 16 0 - 35 U/L [facility] Alkaline Phosphatase 53 38 - 126 U/L [facility] BUN/CREAT 7.5 7 - 25 [facility] Est GFR >90 >90 ML/MIN/1. 73sq.m [facility] GFR Comment Reported eGFR is based on the CKD-EPI 2020 equation that does not use a race coefficient. [facility] Comment: eGFR declines with age, even in people without kidney disease. SEE CHART BELOW FOR AVERAGE ESTIMATED eGFR BASED ON AGE. AGE(YEARS) AVERAGE ESTIMATED GFR <60 >90 60-69 85 >70 75 A/G Ratio 1.3 0.8 - 2.0 [facility] Anion Gap 7(L) 10.0 - 22.0 MMOL/L [facility] Blood 07/23/2025 3:44 AM ENGINEERING CONSULTANT 07/23/2025 4:14 AM ENGINEERING CONSULTANT Kathya Walker NP CHEMISTRY ORDERABLES Edited Resu lt - Final Performing Organization Address [facility]/ZIP Co de Phone Number [address] [phone] * APTT (07/22/2025 8:58 PM ENGINEERING CONSULTANT) Only the most recent of2 resultswithin the time period is included. APTT 23.1 21.2 - 32.8 SEC [facility] Blood 07/22/2025 8:58 PM ENGINEERING CONSULTANT 07/22/2025 9:02 PM ENGINEERING CONSULTANT us Abbe Alvarado MD HEMATOLOGY ORDERABLES Final Result Performing Organization Address [facility] Co de Phone Number [address] [phone] * (ABNORMAL) PROTIME (PROTHROMBIN TIME) (07/22/2025 8:58 PM ENGINEERING CONSULTANT) Only the most recent of2 resultswithin the time period is included. PROTIME 12.6(H) 9.1 - 11.9 SEC [facility] INR 1.2(H) 0.86 - 1.14 [facility] Comment: (NOTE) INR recommended therapeutic range:1.8-2.8 for less intense therapy. 2.3-3.3 more intense therapy. INR is valid for stabilized oral anticoagulant therapy.Reference Range for patients not on anticoagulation therapy 0.87-1.12 Blood 07/22/2025 8:58 PM ENGINEERING CONSULTANT 07/22/2025 9:02 PM ENGINEERING CONSULTANT Abbe Alvarado MD HEMATOLOGY ORDERABLES Final Result Performing Organization Address [facility] Phone Number [address] [phone] * (ABNORMAL) ACETAMINOPHEN LEVEL (07/22/2025 8:58 PM ENGINEERING CONSULTANT) Only the most recent of11 resultswithin the time period is included. Acetaminophen, S <10(L) 10 - 30 UG/ML [facility] Comment: (NOTE) -Acetaminophen- Therapeutic range: 10-30 ug/mL Possible toxicity: 150-200 ug/mL Probable toxicity: >200 ug/mL Blood 07/22/2025 8:58 PM ENGINEERING CONSULTANT 07/22/2025 9:02 PM ENGINEERING CONSULTANT us Abbe Alvarado MD CHEMISTRY ORDERABLES Final R esult Performing Organization Address [address] [phone] * TSH THIRD GENERATION (07/22/2025 2:28 PM ENGINEERING CONSULTANT) Only the most recent of8 resultswithin the time period is included. TSH High Sensitivity 1.45 0.465 - 4.68 uIU/ML [facility] Blood 07/22/2025 2:28 PM ENGINEERING CONSULTANT 07/22/2025 4:49 PM ENGINEERING CONSULTANT us Abbe Alvarado MD CHEMISTRY ORDERABLES Final R esult Performing Organization Address [facility] Phone [address] [address], [place] [phone] * T3 FREE (07/22/2025 2:28 PM ENGINEERING CONSULTANT) Pathologist [facility] [place] Triiodothyronine (T3), Free 3.8 2.0 - 4.4 pg/mL [facility] Comment: (NOTE) Performed At: [address] [id number] Nehemias Hebert PhD Ph:[phone] Blood 07/22/2025 2:28 PM ENGINEERING CONSULTANT 07/22/2025 2:33 PM ENGINEERING CONSULTANT us Abbe Alvarado MD CHEMISTRY ORDERABLES Final R esult [address] [phone] * MAGNESIUM (07/22/2025 4:08 AM ENGINEERING CONSULTANT) Only the most recent of6 resultswithin the time period is included. Pathologist [facility] [place] Magnesium 1.9 1.6 - 2.3 MG/DL [facility] Blood 07/22/2025 4:08 AM ENGINEERING CONSULTANT 07/22/2025 4:19 AM ENGINEERING CONSULTANT us Kathya Walker NP CHEMISTRY ORDERABLES Final Resul t [address] [phone] * HEPATIC (LIVER) FUNCTION PANEL (07/22/2025 4:08 AM ENGINEERING CONSULTANT) Pathologist [facility] [place] Liver Total Protein 6.3 6.3 - 8.2 G/DL [facility] Comment: (NOTE) Plasma samples have a total protein concentration approximately 0.3 g/dL higher that serum due to the presence of fibrinogen. Liver Albumin 3.6 3.3 - 5.0 G/DL [facility] Liver A/G Ratio 1.3 0.8 - 2.0 [facility] Bilirubin, Total 0.5 0.2 - 1.3 MG/DL [facility] AST(SGOT) 23 14 - 36 U/L [facility] ALKP 49 38 - 126 U/L [facility] Alt (SGPT) 23 0 - 35 U/L [facility] Bilirubin, Indirect 0.3 0.0 - 1.1 MG/DL [facility] Bilirubin Direct 0.0 0.0 - 0.3 MG/DL [facility] Blood 07/22/2025 4:08 AM ENGINEERING CONSULTANT 07/22/2025 4:19 AM ENGINEERING CONSULTANT Kathya Walker NP CHEMISTRY ORDERABLES Final Resul t Performing Organization Address [facility] Co de Phone Number [address] [phone] * LACTIC ACID, SERUM (07/22/2025 12:08 AM ENGINEERING CONSULTANT) Only the most recent of3 resultswithin the time period is included. Lactate 1.2 0.7 - 2.0 MMOL/L [facility] Blood (BLOOD) 07/22/2025 12: 08 AM ENGINEERING CONSULTANT 07/22/2025 12:14 AM ENGINEERING CONSULTANT Luis Manuel Shankar MD CHEMISTRY ORDERABLES Final Resul t Performing Organization Address [facility] de Phone Number [address] [phone] * SALICYLATE LEVEL (07/21/2025 8:34 PM ENGINEERING CONSULTANT) Only the most recent of8 resultswithin the time period is included. Salicylate Level <1.0 0 - 20 MG/DL [facility] Comment: (NOTE) Therapeutic: 1.0-20.0 mg/dL Toxic: >30 mg/dL Lethal: >60 mg/dL Blood 07/21/2025 8:34 PM ENGINEERING CONSULTANT 07/21/2025 8:37 PM ENGINEERING CONSULTANT us Luis Manuel Shankar MD CHEMISTRY ORDERABLES Final Resul t [address] [phone] * EKG (07/21/2025 8:18 PM ENGINEERING CONSULTANT) Only the most recent of4 resultswithin the time period is included. Q-T Interval 376 ms RAD/CARD 07/21/2025 8:17 PM ENGINEERING CONSULTANT Narrative RAD/CARD - 07/21/2025 8:35 PM ENGINEERING CONSULTANT Ventricular Rate : 102 BPM Atrial Rate : 102 BPM P-R Interval : 148 ms QRS Duration : 82 ms Q-T Interval : 376 ms QTC Calculation(Bazett) : 490 ms Calculated P Spencer : 45 degrees Calculated R Spencer : 7 degrees T Spencer : 38 degrees Diagnosis : See ED chart/note for EKG interpretation Procedure Note Luis Manuel Shankar MD - 07/21/2025 Ventricular Rate : 102 BPM Atrial Rate : 102 BPM P-R Interval : 148 ms QRS Duration : 82 ms Q-T Interval : 376 ms QTC Calculation(Bazett) : 490 ms Calculated P Spencer : 45 degrees Calculated R Spencer : 7 degrees T Spencer : 38 degrees Diagnosis : See ED chart/note for EKG interpretation us Luis Manuel Shankar MD ECG ORDERABLES Final Result RAD/CARD * (ABNORMAL) BLOOD GAS VENOUS (07/21/2025 6:49 PM ENGINEERING CONSULTANT) pH Venous 7.35 7.31 - 7.41 [facility] pCO2 Venous 34.4(L) 40 - 50 MMHG [facility] PO2 Venous 38.3 35.0 - 45.0 MMHG [facility] HCO3, Venous 18.7(L) 22.0 - 26.0 MMHG [facility] Blood VENOUS BLOOD SPECIMEN / Unknown 07/21/2025 6:49 PM ENGINEERING CONSULTANT 07/21/2025 6:50 PM ENGINEERING CONSULTANT Luis Manuel Shankar MD CHEMISTRY ORDERABLES Final Resul t Performing Organization Address [facility]/ZIP Co de Phone Number [address] [phone] * INFLUENZA A/B, RSV, COVID BY PCR (07/21/2025 5:24 PM ENGINEERING CONSULTANT) Only the most recent of7 resultswithin the time period is included. Pathologist [facility], [place] SARS-COV-2 Source NASOPHARYNGEAL [facility] Influenza A Not Detected Not Detected [facility] Influenza B Not Detected Not Detected [facility] RSV Not Detected Not Detected [facility] SARS-COV-2 By PCR Not Detected Not Detected [facility] Comment (NOTE) [facility] Comment: Results should be used in conjunction with clinical findings and should not form the sole basis for a diagnosis or treatment decision. Method [facility]S [facility] Nasopharyngeal SPECIMEN FROM NASOPHARYNGEAL STRUCTURE / Unknown 07/21/2025 5:24 PM ENGINEERING CONSULTANT 07/21/2025 5:31 PM ENGINEERING CONSULTANT Luis Manuel Shankar MD MICROBIOLOGY - GENERAL ORDERABLE S Final Result Performing Organization Address [facility] Co de Phone Number [address] [phone] * (ABNORMAL) DRUG SCREEN MEDICAL (07/21/2025 5:21 PM ENGINEERING CONSULTANT) Only the most recent of7 resultswithin the time period is included. [facility] Phencyclidine Screen Urine NEGATIVE NEGATIVE [facility] OXYCODONE SCRN UR NEGATIVE NEGATIVE CR [facility] Opiate Screen, Urine NEGATIVE NEGATIVE [facility] Methadone Screen, Urine NEGATIVE NEGATIVE [facility] Methamphetamine, UR NEGATIVE NEGATIVE [facility] Tricyclic Screen POSITIVE(A) NEGATIVE C [facility] THC NEGATIVE NEGATIVE [facility] Benzodiazepine Screen, Urine POSITIVE(A) NEGATIVE [facility] Barbiturate Screen, Urine NEGATIVE NEGATIVE [facility] Amphetamines Screen, Urine NEGATIVE NEGATIVE [facility] Cocaine Metabolites Urine NEGATIVE NEGATIVE [facility] USDS Cut-offs --CUTOFF VALUES FOR THE DRUGS OF ABUSE ARE:-- [facility] Comment: Amphetamine: 500 ng/ml Barbituates: 200 ng/ml Benzodiazepines: 150 ng/ml Buprenorphine: 10 ng/ml Cocaine: 150ng/ml Methamphetamine: 500ng/ml Opiates (Morphine): 100ng/ml Oxycodone: 100 ng/ml PCP (Phencyclidine):25 ng/ml PPX (Propoxyphene): 300 ng/ml TCA: 300 ng/ml THC: 50 ng/ml Methadone: 200 ng/mL THE [employer] DRUGS OF ABUSE PANEL IS A SCREENING TEST ONLY. IF CONFIRMATION TESTING IS NEEDED PLEASE NOTIFY THE LAB. Urine 07/21/2025 5:21 PM ENGINEERING CONSULTANT 07/21/2025 5:22 PM ENGINEERING CONSULTANT us Luis Manuel Shankar MD URINE ORDERABLES Final Result [address] [phone] * (ABNORMAL) URINALYSIS WITH REFLEX TO CULTURE, IF INDICATED (07/21/2025 5:21 PM ENGINEERING CONSULTANT) Only the most recent of8 resultswithin the time period is included. Glucose UA 50(A) NORMAL MG/DL [facility] Protein UA 15(A) NEGATIVE MG/DL [facility] Bilirubin UA NEGATIVE NEGATIVE [facility] Urobilinogen UA NORMAL <2 MG/DL [facility] pH, Urine 6.5 5.0 - 8.0 [facility] Blood UA NEGATIVE NEGATIVE [facility] Ketones UA 5(A) NEGATIVE MG/DL [facility] Nitrite UA NEGATIVE NEGATIVE [facility] Leukocyte Esterase UA NEGATIVE NEGATIVE [facility] UR Appearance CLEAR CLEAR [facility] Specific [place] UA 1.015 1.015 - 1.025 [facility] Color YELLOW YELLOW [facility] Site CCMS [facility] Microscopic Performed PERFORMED [facility] Squamous Epithelial 5-10 <5 /HPF [facility] Mucus TRACE /LPF [facility] Urine URINE SPECIMEN COLLECTION, CLEAN CATCH / Unknown 07/21/2025 5:21 PM ENGINEERING CONSULTANT 07/21/2025 5:22 PM ENGINEERING CONSULTANT Luis Manuel Shankar MD URINE ORDERABLES Final Result Performing Organization Address [facility] Co de Phone Number [address] [phone] * ALCOHOL SERUM MEDICAL (07/21/2025 4:55 PM ENGINEERING CONSULTANT) Only the most recent of7 resultswithin the time period is included. Alcohol Serum <10 0 - 10 MG/DL [facility] Comment: (NOTE) FOR MEDICAL PURPOSES ONLY: NEGATIVE: <10 mg/dL TOXIC: 50-100 mg/dL DEPRESSION of UX DESIGN MANAGER: >100 mg/dL FATALITIES REPORTED (CRITICAL): >400 mg/dL Blood (BLOOD) 07/21/2025 4:5 5 PM ENGINEERING CONSULTANT 07/21/2025 5:02 PM ENGINEERING CONSULTANT Luis Manuel Shankar MD CHEMISTRY ORDERABLES Final Resul t Performing Organization Address City/[facility]/[place] [address], [facility] [phone] * PATH REVIEW, SMEAR (07/21/2025 4:55 PM ENGINEERING CONSULTANT) Smear PATHOLOGIST COMMENTS: Mild leukocytosis with absolute lymphocytosis and monocytosis. Correlation with the clinical picture is suggested. If persistent or progressive, flow cytometry studies can be performed. Performed by Avani Marin MD on 07/22/2025 at [facility] [address] [place] [address] [facility] 07/21/2025 4:55 PM ENGINEERING CONSULTANT 07/21/2025 5:42 PM ENGINEERING CONSULTANT us Luis Manuel Shankar MD PATHOLOGY/CYTOLOGY ORDERABLES Fi nal Result [address] [address] [phone] * HCG QUANTITATIVE (07/21/2025 4:55 PM ENGINEERING CONSULTANT) Gonadotropin, Chorionic (HCG) Quant <2 mIU/ML [facility] Comment: (NOTE) CONCENTRATIONS OF HCG MEASURED IN [...] AGE 11-15 WEEKS 43 55,425 11,556 265,380 96632 151,996 GEST. AGE 16-22 WEEKS 50 27,023 7480.8 11,954 9383.8 61,410 GEST. AGE 23-40 WEEKS 45 24,031 1531.1 101,566 1737.2 98,576 INTERPRETATION OF RESULTS: ACCORDING TO ZAHIRA JOYA. CLINICAL GUIDE TO LABORATORY TESTS, 3RD ED. HCG RESULTS >24 mIU/mL ARE CONSIDERED POSITIVE. Blood (BLOOD) 07/21/2025 4:5 5 PM ENGINEERING CONSULTANT 07/21/2025 5:02 PM ENGINEERING CONSULTANT Luis Manuel Shankar MD CHEMISTRY ORDERABLES Final Resul t Performing Organization Address City/[facility]/ZIP Co de Phone Number [address] [phone] * T4 FREE (07/21/2025 4:55 PM ENGINEERING CONSULTANT) Only the most recent of6 resultswithin the time period is included. Free T4 1.19 0.79 - 2.35 NG/DL [facility] Blood (BLOOD) 07/21/2025 4:5 5 PM ENGINEERING CONSULTANT 07/21/2025 5:02 PM ENGINEERING CONSULTANT Result [facility] Luis Manuel Shankar MD CHEMISTRY ORDERABLES Final Resul t Performing Organization Address [facility] Co de Phone Number [address] [phone] * POCT URINE (07/14/2025 4:57 PM ENGINEERING CONSULTANT) Only the most recent of5 resultswithin the time period is included. Test Urine Negative Negative Kit Lot# [id number] Kit Exp Date 11/11/2026 07/14/2025 4:57 PM ENGINEERING CONSULTANT Jessi Restrepo MD POINT OF CARE TEST ORDERABLES Final Result * POCT INFLUENZA A/B (07/13/2025 5:59 PM ENGINEERING CONSULTANT) Influenza A Ab neg [facility] Influenza B Ab neg [facility] 07/13/2025 5:59 PM ENGINEERING CONSULTANT Mylene Singh APRN POINT OF CARE TEST ORDERABLES Final Result Performing Organization Address City/[facility] Co de Phone Number [facility] [address] [place] [address], [facility] * POCT COVID ANTIGEN HOME TEST (FLOWFLEX) (07/13/2025 5:52 PM ENGINEERING CONSULTANT) SARS-COV-2 AG RAPID Not Detected Not Detected, Invalid Result [facility] NARES ANTERIOR NARES SWAB / Unknown 07/13/2025 5:52 PM ENGINEERING CONSULTANT us Mylene Singh BIOLOGICAL SCIENCE TECHNICIAN POINT OF CARE TEST ORDERABLES Final Result Performing Organization Address [facility] de Phone Number [facility] [address] [place] [address] * POCT RAPID STREP A (07/13/2025 5:52 PM ENGINEERING CONSULTANT) Strep Screen neg [facility] 07/13/2025 5:52 PM ENGINEERING CONSULTANT us Mylene Singh BIOLOGICAL SCIENCE TECHNICIAN POINT OF CARE TEST ORDERABLES Final Result Performing Organization Address [facility] de Phone Number [facility] [address] [place] [address] * CT ABDOMEN PELVIS W CONTRAST (07/09/2025 9:21 PM ENGINEERING CONSULTANT) Anatomical Region Laterality Modality Abdomen Computed Tomogra phy 07/09/2025 8:51 PM ENGINEERING CONSULTANT Impressions 07/09/2025 9:33 PM ENGINEERING CONSULTANT IMPRESSION: No acute abnormality. INCIDENTAL FINDINGS: None requiring follow-up. Electronically signed by: Abbe Paredes MD 07/09/2025 09:33 PM ENGINEERING CONSULTANT RP Narrative 07/09/2025 9:33 PM ENGINEERING CONSULTANT EXAM: CT Abdomen and Pelvis with contrast [...] by: Abbe Paredes MD 07/09/2025 09:33 PM ENGINEERING CONSULTANT RPWorkstation: [id number] Casimiro Arzola MD [facility] CT ORDERABLES Final Result * LIPASE (07/09/2025 8:21 PM ENGINEERING CONSULTANT) Only the most recent of2 resultswithin the time period is included. Lipase 56 23 - 300 U/L [facility] Blood (BLOOD) 07/09/2025 8:2 1 PM ENGINEERING CONSULTANT 07/09/2025 8:26 PM ENGINEERING CONSULTANT Casimiro Arzola MD CHEMISTRY ORDERABLES Final Result Performing Organization Address [facility]/ZIP Co de Phone Number [address] [phone] * AMYLASE (07/09/2025 8:21 PM ENGINEERING CONSULTANT) Amylase 77 30 - 130 U/L [facility] Blood (BLOOD) 07/09/2025 8:2 1 PM ENGINEERING CONSULTANT 07/09/2025 8:26 PM ENGINEERING CONSULTANT Casimiro Arzola MD CHEMISTRY ORDERABLES Final Result Performing Organization Address [facility] Co de Phone Number [address] [phone] * LITHIUM LEVEL (07/03/2025 5:58 PM ENGINEERING CONSULTANT) Only the most recent of5 resultswithin the time period is included. Pathologist [facility] [place] Level SEE SCANNED REPORT 0.6 - 1.2 MEQ/L [facility] Blood (BLOOD) 07/03/2025 5:5 8 PM ENGINEERING CONSULTANT 07/03/2025 6:00 PM ENGINEERING CONSULTANT Elton Rowe MD CHEMISTRY ORDERABLES Final Re sult Performing Organization Address [facility] Co de Phone Number [address] [phone] * MRSA BY PCR (NARES ONLY) (07/03/2025 4:42 PM ENGINEERING CONSULTANT) Source-MRSA [facility] MRSA Not Detected Not Detected [facility] Comment MRSA DNA IS NOT DETECTED, PRESUMED NOT COLONIZED WITH MRSA. [facility] NARES ANTERIOR NARES SWAB / Unknown 07/03/2025 4:42 PM ENGINEERING CONSULTANT 07/03/2025 4:45 PM ENGINEERING CONSULTANT Elton Rowe MD MICROBIOLOGY - GENERAL ORDERA [place]ES [place] [address], [facility] [phone] * XR ABDOMEN KUB (07/03/2025 2:12 PM ENGINEERING CONSULTANT) Anatomical Region Laterality Modality Abdomen Computed Radiogr aphy 07/03/2025 7:58 PM ENGINEERING CONSULTANT Impressions 07/03/2025 3:14 PM ENGINEERING CONSULTANT IMPRESSION: Nasogastric tube as above Electronically signed by: Arpan Lazo MD 07/03/2025 03:14 PM ENGINEERING CONSULTANT RP Narrative 07/03/2025 3:14 PM ENGINEERING CONSULTANT 1 VIEW ABDOMEN CLINICAL HISTORY: Nasogastric tube [...] by: Arpan Lazo MD 07/03/2025 03:14 PM ENGINEERING CONSULTANT RPWorkstation: [id number] us Jessi Restrepo MD [facility] IMG DIAG ORDERABLES Final Result * XR CHEST PORTABLE (07/03/2025 12:55 PM ENGINEERING CONSULTANT) Anatomical Region Laterality Modality Chest Computed Radiogr aphy 07/03/2025 6:41 PM ENGINEERING CONSULTANT Impressions 07/03/2025 2:27 PM ENGINEERING CONSULTANT Impression: Normal. No change. Electronically signed by: Jerod Smith MD 07/03/2025 02:27 PM ENGINEERING CONSULTANT RP Narrative 07/03/2025 2:27 PM ENGINEERING CONSULTANT PROCEDURE: XR CHEST 1 VIEW dated 07/03/2025 12:55 PM ENGINEERING CONSULTANT CLINICAL HISTORY: Female 19 years of age. [...] CHEST 1 VIEW dated 07/03/2025 12:55 PM ENGINEERING CONSULTANT CLINICAL HISTORY: Female 19 years of age. [...] by: Jerod Smith MD 07/03/2025 02:27 PM ENGINEERING CONSULTANT RPWorkstation: [id number] Jessi Restrepo MD [facility] IMG DIAG ORDERABLES Final Result * TEST, URINE (05/24/2025 3:58 PM CDT) Test Urine NEGATIVE NEGATIVE [facility] Urine specimen (specimen) 05/24/2025 3:58 PM CDT 05/24/2025 4:02 PM CDT Philipp Bender MD URINE ORDERABLES Final Re sult [address] [address], [facility] [phone] * URINE CULTURE (05/16/2025 1:20 AM CDT) Specimen Type URINE [facility] Special Handling NONE Reflexed from [id number] [facility] Culture Result 1000 TO 10,000 COL/ML NORMAL UROGENITAL NATASHA [facility] Status 05/18/2025 FINAL [facility] URINE SPECIMEN / Unknown 05/16/2025 1:20 AM CDT 05/16/2025 1:29 AM CDT us Pema Cardoza DO URINE ORDERABLES Final Resul t [facility] [address] [place] [address], [facility] [phone] [address], [facility] [phone] * CARDIOLOGY (05/15/2025 9:24 PM CDT) Anatomical Region Laterality Modality Other us Philipp Bender MD TRANSCRIPTIONS Final Res ult from Last 3 Months Insurance [address] [place] [address] [place] [employer] [facility]IC[facility] Advance Directives * Full Code (Latest Code Status on File) Date Activated Date Inactivated Comments 07/22/2025 3:56 AM 07/24/2025 12:51 AM * Full Code Date Activated Date Inactivated Comments 07/03/2025 4:26 PM 07/04/2025 1:22 PM * Full Code Date Activated Date Inactivated Comments 05/16/2025 11:31 AM 05/19/2025 8:35 PM Care Teams Dice Spotter Relationship Specialty Start Date End Date Yesi Delvalle PA-C [address] [place] [address] PCP - General Physician [employer] Superintendent 06/03/24
[2025-07-30 14:00] VITALS: BP 111/87; PULSE 122; RESP 18; TEMP 36.9; O2SAT 95
--- NOTE | 2025-07-30 14:10 | PC.NURSE ---
EDP made aware of pt arrival to room and [place] scale assessment. Reported pt denying SI today and her recent hospitalization and d/c from [place]. No new orders received. research program internship made aware.
[2025-07-30 15:38] LABS: BEDSIDEPREGUCG Negative (Negative)
[2025-07-30 15:43] LABS: Hematocrit 42.0 % (37.0-47.0); Hemoglobin 13.1 g/dL (12.0-15.0); Immature Granulocyte Percent A 0.4 % (0-0.5); Lymphocytes Absolute Auto 1.69 K/mm3 (0.9-3.2); Mean Corpuscular HGB Conc 31.2 g/dl (32-36); Mean Corpuscular Hemoglobin 27.8 pg (26-34); Mean Corpuscular Volume 89.2 fl (80-100); Nucleated Red Blood Cells Absolute Auto 0.000 K/mm3 (0.0-0.012); Nucleated Red Blood Cells Perc 0.0 % (0.0-0.2); Platelet Count Result 285 k/mm3 (150-375); Red Blood Count 4.71 M/mm3 (4.2-5.4); White Blood Count 10.1 K/mm3 (4.5-10.0)
[2025-07-30 15:49] LABS: Add Urine Microscopic? YES; Appearance Urine Cloudy (Clear); Glucose Urine UA Negative (Negative); Leukocyte Esterase Ur Trace LEU/UL (Negative); Nitrate Urine Negative (Negative); Non Pathogenic Casts 0-2; Specific Grav Ur 1.016 (1.001-1.035)
[2025-07-30 15:55] LABS: Alanine Aminotransferase 25 U/L (6-35); Albumin Level 4.8 g/dL (3.5-5.1); Alkaline Phosphatase 75 U/L (38-126); Anion Gap 7 mmol/L (4-12); Aspartate Amino Transferase 28 U/L (14-36); Bilirubin,Total 0.3 mg/dL (0.2-1.3); Blood Urea Nitrogen 12 mg/dL (7-17); Calcium 9.6 mg/dL (8.4-10.2); Carbon Dioxide 25 mmol/L (22-30); Chloride 106 mmol/L (98-107); Estimated CRCL calculation 107 ml/min; Estimated Glomerular Filt Rate > 60; Glucose 92 mg/dL (65-110); Lipase 60 U/L (23-300); Potassium 3.8 mmol/L (3.4-5.0); Sodium 138 mmol/L (137-145); Total Protein 7.7 g/dL (6.3-8.2)
[2025-07-30 16:23] LABS: INR 1.1; Prothrombin Time 14.3 Seconds (11.1-14.7)
[2025-07-30 16:24] LABS: Partial Thromboplastin Time 28.3 Seconds (22.3-36.8)
--- NOTE | 2025-07-30 16:29 | PC.NURSE ---
Pt left AMA, verbalized understanding of all risks and benefits.
--- NOTE | 2025-07-30 17:16 | ED_ITS ---
HPI - General Adult General Chief complaint: Nausea/Vomiting/Diarrhea Stated complaint: ABD pain, N/V s/p overdose 1 week ago Time Seen by Provider: 07/30/25 14:07 History of Present Illness HPI narrative: 19-year-old female presenting with nausea/vomiting/diarrhea since yesterday. Other symptoms include dysuria and bilateral flank and lower back pain. Patient states she was released from [place] earlier today after having been treated for a Tylenol overdose. She denies SI/HI. Denies melena/hematochezia, hematemesis, fevers/chills, chest pain/shortness breath, hematuria, or vaginal complaints. Related Data Allergies Allergy/AdvReac Type Severity Reaction Status Date / Time diphenhydramine (From Allergy Severe Anaphylaxis Verified 07/30/25 14:20 Benadryl) Penicillins Allergy Intermediate Unknown Verified 07/30/25 14:20 Review of Systems 2 Review of Systems: All systems reviewed & are unremarkable except as noted in HPI and below Exam 2 Narrative: GENERAL: No acute distress. Anxious-appearing. Coloring during assessment. HEAD: Normocephalic, atraumatic. EYES: PERRLA and EOMI. ENT: Nares clear, no rhinorrhea or epistaxis. Mucous membranes moist. Oropharynx without tonsillar hypertrophy exudate or other lesions. Bilateral TMs pearly alejandro non-bulging NECK: Supple. No adenopathy or masses. No carotid bruits or JVD CHEST: Clear to auscultation. No respiratory distress. No wheezes rales or rhonchi HEART: Regular rate and rhythm. No murmur heard. Normal peripheral pulses. ABDOMEN: Normal active bowel sounds. Diffuse TTP to abdomen, flanks, and lower back. Hard to localize. EXTREMITIES: Normal range of motion. No edema. SKIN: Warm, dry, no rash. NEURO: No focal deficits. Alert and oriented x3. PSYCH: Normal mood and affect Course Vital Signs Vital signs: Vital Signs Temperature 98.5 F 07/30/25 14:00 Pulse Rate 122 H 07/30/25 14:00 Respiratory Rate 18 07/30/25 14:00 Blood Pressure 111/87 07/30/25 14:00 Pulse Oximetry 95 07/30/25 14:00 Oxygen Delivery Room Air 07/30/25 14:00 Temperature 98.5 F 07/30/25 14:00 Pulse Rate 122 H 07/30/25 14:00 Respiratory Rate 18 07/30/25 14:00 Blood Pressure 111/87 07/30/25 14:00 Pulse Oximetry 95 07/30/25 14:00 Oxygen Delivery Room Air 07/30/25 14:00 [facility] Narrative Medical decision making narrative: 19-year-old female presenting with nausea/vomiting/diarrhea since yesterday. Other symptoms include dysuria and bilateral flank and lower back pain. Patient states she was released from [place] earlier today after having been treated for a Tylenol overdose. She denies SI/HI. Denies melena/hematochezia, hematemesis, fevers/chills, chest pain/shortness breath, hematuria, or vaginal complaints. Upon my initial assessment patient appears antsy and anxious but nontoxic. A full workup was ordered however patient left before it was completed. Labs were within normal limits. Patient was answering questions appropriately and was alert and oriented x3. Nursing staff states they discussed risks of an incomplete evaluation and treatment with the patient, including potential for or permanent disability. They noted the patient seemed to understand these risks, but still desired to refuse further care. Patient was told she can return to the ED at any time to resume care. Differential Diagnosis Differential Diagnosis: Differential diagnostic considerations for acute abdominal pain include surgical abdominal etiology, ischemic bowel, inflammatory bowel disease, gastritis, PUD, gastroenteritis, cardiac etiology, appendicitis, diverticulitis, bowel obstruction, kidney stone, pyelonephritis, abdominal aortic aneurysm, pancreatitis, constipation, endometriosis. Lab Data [facility] Lab Attestation statement: I personally reviewed the patient's lab results. 07/30/25 15:35 07/30/25 15:35 Labs: Lab Results 07/30/25 07/30/25 Range/Units 15:35 15:37 WBC 10.1 H (4.5-10.0) K/mm3 RBC 4.71 (4.2-5.4) M/mm3 Hgb 13.1 (12.0-15.0) g/dL Hct 42.0 (37.0-47.0) % MCV 89.2 (80-100) fl MCH 27.8 (26-34) pg MCHC 31.2 L (32-36) g/dl RDW 12.4 (11.5-14.5) % Plt Count 285 (150-375) k/mm3 MPV 9.9 (7.4-10.4) fl Immature Gran % (Auto) 0.4 (0-0.5) % Neut % (Auto) 75.5 H (45.5-73.1) % Lymph % (Auto) 16.7 L (18.3-44.2) % Antelope % (Auto) 6.5 (2.6-8.5) % Eos % (Auto) 0.6 (0-4.4) % Baso % (Auto) 0.3 (0.2-1.2) % Lymph # (Auto) 1.69 (0.9-3.2) K/mm3 Antelope # (Auto) 0.7 H (0.1-0.6) K/mm3 Eos # (Auto) 0.1 (0-0.3) K/mm3 Baso # (Auto) 0.0 (0.0-0.1) K/mm3 Abs Immat Gran (auto) 0.04 H (0.00-0.031) K/mm3 Absolute Neuts (auto) 7.7 H (1.3-6.7) K/mm3 Absolute Nucleated RBC 0.000 (0.0-0.012) K/mm3 Nucleated RBC % 0.0 (0.0-0.2) % PT 14.3 (11.1-14.7) Seconds INR 1.1 APTT 28.3 (22.3-36.8) Seconds Sodium 138 (137-145) mmol/L Potassium 3.8 (3.4-5.0) mmol/L Chloride 106 (98-107) mmol/L Carbon Dioxide 25 (22-30) mmol/L Anion Gap 7 (4-12) mmol/L BUN 12 (7-17) mg/dL Creatinine 0.65 L (0.7-1.0) mg/dL Estim Creat Clear Calc 107 ml/min Estimated GFR > 60 (59 - ) Glucose 92 (65-110) mg/dL Calcium 9.6 (8.4-10.2) mg/dL Total Bilirubin 0.3 (0.2-1.3) mg/dL AST 28 (14-36) U/L ALT 25 (6-35) U/L Alkaline Phosphatase 75 (38-126) U/L Total Protein 7.7 (6.3-8.2) g/dL Albumin 4.8 (3.5-5.1) g/dL Lipase 60 (23-300) U/L Urine Color Yellow (Yellow) Urine Appearance Cloudy H (Clear) Urine pH >=9.0 H (5.0-9.0) Ur Specific [place] 1.016 (1.001-1.035) Urine Protein 1+ H (Negative) mg/dL Urine Glucose (UA) Negative (Negative) mg/dL Urine Ketones Negative (Negative) mg/dL Ur Blood (Man) Negative (Negative) Urine Nitrate Negative (Negative) Urine Bilirubin Negative (Negative) Urine Urobilinogen 0.2 (<2.0) mg/dL Leukocyte Esterase Rfl Trace H (Negative) QUETA/UL Urine RBC 0-2 (0-2) /hpf Urine WBC 0-5 (0-3) /hpf Ur Squamous Epith Cells None seen (Few) /hpf Urine Bacteria None seen /hpf Urine Casts 0-2 POC Urine HCG, Qual Negative (Negative) Discharge Plan Discharge Clinical Impression: Nausea & vomiting, Diarrhea, Abdominal pain, Back pain Patient Disposition: Left Against Medical Advice Condition: Stable Patient Language: Kiswahili Prescriptions: No Action albuterol sulfate 1.25 mg/3 mL solution for nebulization 1.25 mg inhalation Q4H PRN (Reason: shortness of breath or wheezing) Qty: 90 0RF Follow-up/Referrals: Adelia,Yesi [Other]
== END 2025-07-30 16:32 | disposition left against medical advice (07) ==
DX: R11.2 Nausea with vomiting, unspecified (principal); R19.7 Diarrhea, unspecified; R10.A3 Flank pain, bilateral; M54.50 Low back pain, unspecified; R10.9 Unspecified abdominal pain
CPT/HCPCS: 36415; 80053; 81001; 81025; 83690; 85025; 85610; 85730; 96360; 99283